=== PATIENT | male | born 1975 | race Caucasian/White ===

== ENCOUNTER 2018-01-04 16:12 | Emergency (ER) | payer MEDICAID ==
--- NOTE | 2018-01-04 16:51 | EDM.PDOC ---
ED HPI GENERAL MEDICAL PROBLEM - General Chief Complaint: General Stated Complaint: poor appetite, lethargy Time Seen by Provider: 01/04/18 16:31 Source of Information: Reports: Patient History Limitations: Reports: No Limitations - History of Present Illness INITIAL COMMENTS - FREE TEXT/NARRATIVE: States that he moved here about 2-3 weeks ago from [place] after breaking up with a girlfriend. Moved to as his Mom lives there. Hasn't been taking care of his diabetes for several months. Doesn't remember the last time he took his blood sugar and thinks his insulin has been "a while". Doesn't check his blood sugars at all. Did get a new glucose meter from [facility] several days ago but hasn't used it. Received his insulin supply from [facility] but hasn't taken any yet. DId have labs drawn when at [facility] but has no idea what it was or what the results are. Has been diabetic since 2007 and has never taken care of his diabetes. 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 He believes that he is type 2 but not sure. He states that he is very tired, no energy and has not been eating. Did drink some boost and that tends to give him diarrhea. States that he faints and falls and doesn't check his blood sugar so doesn't know if it is high or low. Did fall and hit the edge of the bath tub and has pain to the right lateral rib cage. Not sure when he fell. has multiple bruises and open sores on legs that he state don't heal because he picks on them. Onset: Gradual Location: Reports: Generalized Right Thoracic Pain Score (Numeric/FACES): 6 - Related Data Allergies Allergy/AdvReac Type Severity Reaction Status Date / Time No Known Allergies Allergy Verified 01/04/18 16:21 Home Meds: Home Meds Insulin Aspart [NovoLOG] 25 unit SUBCUT TIDAC 01/04/18 [History] Insulin Detemir [Levemir] 25 unit SUBCUT BID 01/04/18 [History] metFORMIN [Glucophage XR] 1,000 mg PO BID 01/04/18 [History] Past Medical History Endocrine/Metabolic History: Reports: Diabetes, Type II - Past Surgical History Musculoskeletal Surgical History: Reports: Other (See Below) 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 Social & Family History - Tobacco Use Smoking Status *Q: Never Smoker ED ROS GENERAL - Review of Systems Review Of Systems: See Below Constitutional: Reports: No Symptoms. Denies: Fever, Chills HEENT: Reports: No Symptoms Respiratory: Reports: No Symptoms Cardiovascular: Reports: No Symptoms GI/Abdominal: Reports: Diarrhea : Reports: No Symptoms Musculoskeletal: Reports: Other (right lateral chest wall pain) Skin: Reports: Wound (multiple areas on legs bilaterally, has sore on the base of the right thumb. has scratches on arms.) Neurological: Reports: Weakness ED EXAM, GENERAL - Physical Exam Exam: See Below Exam Limited By: No Limitations General Appearance: Alert, Mild Distress Ears: Normal External Exam, Normal Canal, Normal TMs Nose: Normal Inspection, No Blood Throat/Mouth: Other (teeth are broken off and in poor repair.). No: Normal Teeth Head: Atraumatic, Normocephalic Neck: Normal Inspection, Supple, Non-Tender, Full Range of Motion Respiratory/Chest: No Respiratory Distress, Lungs Clear, Normal Breath Sounds Cardiovascular: Regular Rate, Rhythm, No Edema GI/Abdominal: Normal Bowel Sounds, Soft, No Organomegaly Back Exam: Normal Inspection, Full Range of Motion Extremities: Other (has multiple scratches and open sores to his legs and arms, base of right thumb, upper back.) Neurological: Alert, Oriented, Other (states that it hard for him to remember.) Skin Exam: Warm, Dry, Wound/Incision (see HPI) Course - Vital Signs Last Recorded V/S: Last Vital Signs Temp 96.0 F 01/04/18 16:18 Pulse 101 H 01/04/18 16:18 Resp 20 01/04/18 16:18 BP 122/74 01/04/18 16:18 Pulse Ox 99 01/04/18 16:18 - Orders/Labs/Meds Orders: Active Orders 24 hr Category Date Time Status POC Glucose [Blood Glucose Check, Bedside] [RC] ONETIME Care 01/04/18 17:48 Active CXR [Chest 2V] [CR] Stat Exams 01/04/18 16:43 Taken DRUG SCREEN URINE BIORAD [URCHEM] Stat Lab 01/04/18 16:53 Ordered HIV 1,2 AB/AG COMBO SCREEN [REF] Stat Lab 01/04/18 17:00 Received UA W/MICROSCOPIC [URIN] Stat Lab 01/04/18 17:09 Ordered Insulin Regular, Human [NovoLIN R] 100 unit Med 01/04/18 18:00 Active Sodium Chloride 0.9% [Normal Saline] 99 ml IV TITRATE Sodium Chloride 0.9% [Normal Saline] 1,000 ml Med 01/04/18 18:00 Active IV ASDIRECTED Medication Orders Insulin Human Regular 100 unit (/ Sodium Chloride) 100 mls @ 5.89 mls/hr IV TITRATE ANTONIA; Protocol Last Admin: 01/04/18 17:57 Dose: 0.1 units/kg/hr, 5.89 mls/hr Sodium Chloride (Normal Saline) 1,000 mls @ 999 mls/hr IV ASDIRECTED ANTONIA Last Admin: 01/04/18 17:56 Dose: 999 mls/hr Labs: Laboratory Tests 01/04/18 01/04/18 01/04/18 Range/Units 16:48 16:48 16:48 WBC 21.0 H* (5.0-10.0) 10^3/uL RBC 4.47 L (4.50-6.00) 10^6/uL Hgb 11.9 L (14.0-18.0) g/dL Hct 35.5 L (40.0-54.0) % MCV 79.4 L (82.0-94.0) fL MCH 26.6 L (27.0-32.0) pg MCHC 33.5 (33.0-38.0) g/dL RDW Coeff of Jazzmine 13.8 (11.0-15.0) % Plt Count 359 (150-400) 10^3/uL Add Manual Diff Yes Neutrophils % (Manual) 79 (35-85) % Band Neutrophils % 14 H (0-5) % Lymphocytes % (Manual) 4 L (21-55) % Monocytes % (Manual) 2 (2-12) % Eosinophils % (Manual) 1 (0-5) % Sodium 113 L* (136-145) mEq/L Potassium 4.4 (3.5-5.0) mEq/L Chloride 81 L (98-106) mEq/L Carbon Dioxide 19 L (21-32) mmol/L BUN 80 H* (7-18) mg/dL Creatinine 2.4 H (0.7-1.3) mg/dL Est Cr Clr Drug Dosing 32.76 mL/min Estimated GFR (MDRD) 30 L (>=60) mL/min Glucose 875 H* (75-99) mg/dL Hemoglobin A1c 14.0 H (4.8-6.2) % Calcium 7.7 L (8.4-10.1) mg/dL Magnesium 2.5 H (1.8-2.4) mg/dL Total Bilirubin 0.5 (0.0-1.0) mg/dL AST 10 L (15-37) U/L ALT 18 (12-78) U/L Alkaline Phosphatase 291 H (46-116) U/L C-Reactive Protein 23.6 H (0.2-0.8) mg/dL Total Protein 7.5 (6.4-8.2) g/dL Albumin 1.8 L (3.4-5.0) g/dL Amylase 23 L (25-115) U/L Urine Color (YELLOW) Urine Appearance (CLEAR) Urine pH (4.5-8.0) Ur Specific [place] (1.003-1.020) Urine Protein (NEGATIVE) mg/dL Urine Glucose (UA) (NEGATIVE) mg/dL Urine Ketones (NEGATIVE) mg/dL Urine Occult Blood (NEGATIVE) Urine Nitrite (NEGATIVE) Urine Bilirubin (NEGATIVE) Urine Urobilinogen (0.2-1.0) EU/dL Ur Leukocyte Esterase (NEGATIVE) Urine RBC (0-5) /HPF Urine WBC (0-5) /HPF Urine WBC Clumps (NOT SEEN) /HPF Ur Epithelial Cells (NOT SEEN) /HPF Urine Bacteria (NOT SEEN) /HPF Urine Opiates Screen (NEGATIVE) Ur Oxycodone Screen (NEGATIVE) Urine Methadone Screen (NEGATIVE) Ur Barbiturates Screen (NEGATIVE) U Tricyclic Antidepress (NEGATIVE) Ur Phencyclidine Scrn (NEGATIVE) Ur Amphetamine Screen (NEGATIVE) U Methamphetamines Scrn (NEGATIVE) Urine MDMA Screen (NEGATIVE) U Benzodiazepines Scrn (NEGATIVE) Urine Cocaine Screen (NEGATIVE) U Marijuana (THC) Screen (NEGATIVE) 01/04/18 01/04/18 Range/Units 16:53 17:09 WBC (5.0-10.0) 10^3/uL RBC (4.50-6.00) 10^6/uL Hgb (14.0-18.0) g/dL Hct (40.0-54.0) % MCV (82.0-94.0) fL MCH (27.0-32.0) pg MCHC (33.0-38.0) g/dL RDW Coeff of Jazzmine (11.0-15.0) % Plt Count (150-400) 10^3/uL Add Manual Diff Neutrophils % (Manual) (35-85) % Band Neutrophils % (0-5) % Lymphocytes % (Manual) (21-55) % Monocytes % (Manual) (2-12) % Eosinophils % (Manual) (0-5) % Sodium (136-145) mEq/L Potassium (3.5-5.0) mEq/L Chloride (98-106) mEq/L Carbon Dioxide (21-32) mmol/L BUN (7-18) mg/dL Creatinine (0.7-1.3) mg/dL Est Cr Clr Drug Dosing mL/min Estimated GFR (MDRD) (>=60) mL/min Glucose (75-99) mg/dL Hemoglobin A1c (4.8-6.2) % Calcium (8.4-10.1) mg/dL Magnesium (1.8-2.4) mg/dL Total Bilirubin (0.0-1.0) mg/dL AST (15-37) U/L ALT (12-78) U/L Alkaline Phosphatase (46-116) U/L C-Reactive Protein (0.2-0.8) mg/dL Total Protein (6.4-8.2) g/dL Albumin (3.4-5.0) g/dL Amylase (25-115) U/L Urine Color Light yellow (YELLOW) Urine Appearance Cloudy (CLEAR) Urine pH 5.0 (4.5-8.0) Ur Specific [place] <= 1.005 (1.003-1.020) Urine Protein Trace H (NEGATIVE) mg/dL Urine Glucose (UA) >=1000 H (NEGATIVE) mg/dL Urine Ketones 15 H (NEGATIVE) mg/dL Urine Occult Blood Moderate H (NEGATIVE) Urine Nitrite Negative (NEGATIVE) Urine Bilirubin Negative (NEGATIVE) Urine Urobilinogen 0.2 (0.2-1.0) EU/dL Ur Leukocyte Esterase Moderate H (NEGATIVE) Urine RBC Not seen (0-5) /HPF Urine WBC >100 H (0-5) /HPF Urine WBC Clumps Moderate H (NOT SEEN) /HPF Ur Epithelial Cells Few H (NOT SEEN) /HPF Urine Bacteria Moderate H (NOT SEEN) /HPF Urine Opiates Screen Negative (NEGATIVE) Ur Oxycodone Screen Negative (NEGATIVE) Urine Methadone Screen Negative (NEGATIVE) Ur Barbiturates Screen Negative (NEGATIVE) U Tricyclic Antidepress Negative (NEGATIVE) Ur Phencyclidine Scrn Negative (NEGATIVE) Ur Amphetamine Screen Negative (NEGATIVE) U Methamphetamines Scrn Negative (NEGATIVE) Urine MDMA Screen Negative (NEGATIVE) U Benzodiazepines Scrn Negative (NEGATIVE) Urine Cocaine Screen Negative (NEGATIVE) U Marijuana (THC) Screen Negative (NEGATIVE) Meds: Medications Generic Name Dose Route Start Last Admin Trade Name Freq PRN Reason Stop Dose Admin Insulin Human Regular 100 unit 100 mls @ 5.89 mls/hr 01/04/18 18:00 01/04/18 17:57 / Sodium Chloride IV 0.1 units/kg/hr TITRATE ANTONIA 5.89 mls/hr Administration Protocol 0.1 UNITS/KG/HR Sodium Chloride 1,000 mls @ 999 mls/hr 01/04/18 18:00 01/04/18 17:56 Normal Saline IV 999 mls/hr ASDIRECTED ANTONIA Administration Discontinued Medications Generic Name Dose Route Start Last Admin Trade Name Freq PRN Reason Stop Dose Admin Insulin Detemir 30 unit 01/04/18 17:47 01/04/18 18:11 Levemir SUBCUT 01/04/18 17:48 30 unit ONETIME ONE Administration - Re-Assessments/Exams Free Text/Narrative Re-Assessment/Exam: 01/04/[id number] Vieira hospitalist at [facility] lab results and he agrees to take him in transfer. He advises to start insulin drip at 8 u, 30 units of Lantus, 1 liter NS bolus and then followed by 100 ml hour. Will be transferred to [facility], Risks of staying with the pt were reviewed including chance of , worsening or conditioning, inablility to care for pt adequately at this facility. Benefits of transfer include that he would have specialized care and treatment by specialists. Pt voices understanding and does wish to be transferred to [facility]. Departure - Departure Time of Disposition: 18:19 Disposition: DC/Tfer to Acute Hospital 02 Condition: Serious Clinical Impression: Hyperglycemia, Hyponatremia - Discharge Information *PRESCRIPTION DRUG MONITORING PROGRAM REVIEWED*: Not Applicable *COPY OF PRESCRIPTION DRUG MONITORING REPORT IN PATIENT ELVIA: Not Applicable Forms: ED Department Discharge Additional Instructions: Transfer to [facility] 2E per ambulance with Insulin drip at 8 units per hour, IV normal saline at 100 ml hour after the bolus is in. - Problem List & Annotations (1) Hyperglycemia SNOMED Code(s): 34813412 Code(s): R73.9 - HYPERGLYCEMIA, UNSPECIFIED Status: Acute Priority: High Current Visit: Yes (2) Hyponatremia SNOMED Code(s): 35368968 Code(s): E87.1 - HYPO-OSMOLALITY AND HYPONATREMIA Status: Acute Priority : High Current Visit: Yes - Problem List Review Problem List Initiated/Reviewed/Updated: Yes - My Orders Last 24 Hours: My Active Orders 01/04/18 16:43 CXR [Chest 2V] [CR] Stat 01/04/18 16:53 DRUG SCREEN URINE BIORAD [URCHEM] Stat 01/04/18 17:00 HIV 1,2 AB/AG COMBO SCREEN [REF] Stat 01/04/18 17:09 UA W/MICROSCOPIC [URIN] Stat 01/04/18 17:48 POC Glucose [Blood Glucose Check, Bedside] [RC] ONETIME 01/04/18 18:00 Insulin Regular, Human [NovoLIN R] 100 unit Sodium Chloride 0.9% [Normal Saline] 99 ml IV TITRATE Sodium Chloride 0.9% [Normal Saline] 1,000 ml IV ASDIRECTED - Assessment/Plan Last 24 Hours: My Active Orders 01/04/18 16:43 CXR [Chest 2V] [CR] Stat 01/04/18 16:53 DRUG SCREEN URINE BIORAD [URCHEM] Stat 01/04/18 17:00 HIV 1,2 AB/AG COMBO SCREEN [REF] Stat 01/04/18 17:09 UA W/MICROSCOPIC [URIN] Stat 01/04/18 17:48 POC Glucose [Blood Glucose Check, Bedside] [RC] ONETIME 01/04/18 18:00 Insulin Regular, Human [NovoLIN R] 100 unit Sodium Chloride 0.9% [Normal Saline] 99 ml IV TITRATE Sodium Chloride 0.9% [Normal Saline] 1,000 ml IV ASDIRECTED
[2018-01-04] MEDS ORDERED: Insulin Detemir 100 Units/ML 3 ML Pen SUBCUT ONE (17:47)
[2018-01-04] MEDS ORDERED: Sodium Chloride 0.9% 1,000 ML IV SCH (18:00)
== END 2018-01-04 19:27 ==
LOC: CC.ED 16:12
DX: E11.65 Type 2 diabetes mellitus with hyperglycemia (principal); Z79.4 Long term (current) use of insulin
CPT/HCPCS: 36415; 71046; 80053; 80305-QW; 81001; 82150; 82947; 82962; 83036; 83735; 85025; 86140; 86703; 96365; 99285; J1815-GY; J7030; J7050

== ENCOUNTER 2018-02-18 17:59 | Emergency (ER) | payer SELFPAY ==
[2018-02-18] MEDS ORDERED: cefTRIAXone 1 GM Vial IM ONE (18:42)
[2018-02-18] MEDS ORDERED: Lidocaine 1% 20 ML MDV INJECT ONE (18:42)
--- NOTE | 2018-02-18 18:46 | EDM.PDOC ---
ED HPI GENERAL MEDICAL PROBLEM - General Chief Complaint: Flank Pain Stated Complaint: kidney stone Time Seen by Provider: 02/18/18 18:15 Source of Information: Reports: Patient History Limitations: Reports: No Limitations - History of Present Illness INITIAL COMMENTS - FREE TEXT/NARRATIVE: Patient presents with complaints of left flank pain, questions a kidney stone. States started having discomfort yesterday and has not improved. He denies fever. No nausea. States has mostly laid in bed today due to the discomfort. Has taken ibuprofen and tylenol without much relief. He has not eaten much today but did take his insulin. Has had a kidney stone in the past and feels somewhat like that. He rates his pain at an 8/10. Relates his blood sugars have been running high as of late but abdominal pain, dysuria, or hematuria noted. Does have frequency with urination chronically. Onset: Gradual Duration: Day(s): Location: Reports: Back Quality: Reports: Throbbing Severity: Moderate Associated Symptoms: Reports: Loss of Appetite, Weakness. Denies: Cough, Fever/ Chills, Nausea/Vomiting, Shortness of Breath Left Flank Pain Score (Numeric/FACES): 8 - Related Data Allergies Allergy/AdvReac Type Severity Reaction Status Date / Time No Known Allergies Allergy Verified 02/18/18 18:11 Home Meds: Home Meds Insulin Aspart [NovoLOG] 18 unit SUBCUT TIDAC 01/04/18 [History] Insulin Detemir [Levemir] 40 unit SUBCUT BID 01/04/18 [History] metFORMIN [Glucophage XR] 1,000 mg PO BID 01/04/18 [History] Ferrous Sulfate 324 mg PO BIDMEALS #60 tab.ec 01/22/18 [Rx] Aspirin 81 mg PO DAILY 02/18/18 [History] Past Medical History HEENT History: Reports: Glaucoma Endocrine/Metabolic History: Reports: Diabetes, Type II - Past Surgical History Musculoskeletal Surgical History: Reports: Other (See Below) 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 Social & Family History - Family History Family Medical History: Noncontributory - Tobacco Use Smoking Status *Q: Never Smoker Second Hand Smoke Exposure: Yes - Caffeine Use Caffeine Use: Reports: Coffee ED ROS GENERAL - Review of Systems Review Of Systems: ROS reveals no pertinent complaints other than HPI. Constitutional: Reports: Malaise, Weakness, Decreased Appetite. Denies: Fever, Chills HEENT: Reports: No Symptoms Respiratory: Denies: Shortness of Breath, Cough Cardiovascular: Denies: Chest Pain, Edema, Lightheadedness GI/Abdominal: Denies: Abdominal Pain, Nausea, Vomiting : Reports: Frequency. Denies: Dysuria, Hematuria Musculoskeletal: Reports: No Symptoms Skin: Reports: No Symptoms Neurological: Reports: No Symptoms Psychiatric: Reports: No Symptoms ED EXAM, RENAL/ - Physical Exam Exam: See Below Exam Limited By: No Limitations General Appearance: Alert, WD/WN, No Apparent Distress Ears: Normal External Exam, Normal TMs Throat/Mouth: Normal Inspection, Normal Oropharynx Head: Normocephalic Neck: Normal Inspection, Supple Respiratory/Chest: No Respiratory Distress, Lungs Clear, Normal Breath Sounds Cardiovascular: Regular Rate, Rhythm GI/Abdominal: Normal Bowel Sounds, Soft, Non-Tender Back Exam: CVA Tenderness (L) Extremities: Normal Inspection, Normal Capillary Refill Neurological: Alert, Oriented Skin Exam: Warm, Dry Course - Vital Signs Last Recorded V/S: Last Vital Signs Temp 98.2 F 02/18/18 18:09 Pulse 90 02/18/18 18:09 Resp 20 02/18/18 18:09 BP 150/103 H 02/18/18 18:09 Pulse Ox 98 02/18/18 18:09 - Orders/Labs/Meds Orders: Active Orders 24 hr Category Date Time Status CULTURE URINE [RM] Stat Lab 02/18/18 18:04 Received UA W/MICROSCOPIC [URIN] Stat Lab 02/18/18 18:04 Ordered Labs: Laboratory Tests 02/18/18 Range/Units 18:04 Urine Color Yellow (YELLOW) Urine Appearance Clear (CLEAR) Urine pH 6.0 (4.5-8.0) Ur Specific [place] 1.015 (1.003-1.020) Urine Protein Negative (NEGATIVE) mg/dL Urine Glucose (UA) Negative (NEGATIVE) mg/dL Urine Ketones Negative (NEGATIVE) mg/dL Urine Occult Blood Negative (NEGATIVE) Urine Nitrite Negative (NEGATIVE) Urine Bilirubin Negative (NEGATIVE) Urine Urobilinogen 0.2 (0.2-1.0) EU/dL Ur Leukocyte Esterase Small H (NEGATIVE) Urine RBC 0-5 (0-5) /HPF Urine WBC 50-75 H (0-5) /HPF Meds: Medications Discontinued Medications Generic Name Dose Route Start Last Admin Trade Name Napoleon PRN Reason Stop Dose Admin Ceftriaxone Sodium 1 gm 02/18/18 18:42 02/18/18 19:05 Rocephin IM 02/18/18 18:43 1 gm ONETIME ONE Administration Ketorolac Tromethamine 60 mg 02/18/18 18:51 02/18/18 19:05 Toradol IM 02/18/18 18:52 60 mg ONETIME ONE Administration Lidocaine HCl 20 ml 02/18/18 18:42 02/18/18 19:05 Xylocaine 1% INJECT 02/18/18 18:43 20 ml ONETIME ONE Administration - Re-Assessments/Exams Free Text/Narrative Re-Assessment/Exam: 02/18/18 Patient's urine positive for infection, no blood. Informed patient and family. Departure - Departure Time of Disposition: 18:43 Disposition: Home, Self-Care 01 Condition: Fair Clinical Impression: UTI, Urinary tract infectious disease - Discharge Information *PRESCRIPTION DRUG MONITORING PROGRAM REVIEWED*: No *COPY OF PRESCRIPTION DRUG MONITORING REPORT IN PATIENT ELVIA: No Referrals: Sidney Crespo MD [Primary Care Provider] - Forms: ED Department Discharge Additional Instructions: 1. Push fluids 2. Tylenol or ibuprofen as directed 3. Bactrim DS one tab twice a day for 10 days 4. Follow up with Dr. Crespo for concerns. - My Orders Last 24 Hours: My Active Orders 02/18/18 18:04 CULTURE URINE [RM] Stat UA W/MICROSCOPIC [URIN] Stat - Assessment/Plan Last 24 Hours: My Active Orders 02/18/18 18:04 CULTURE URINE [RM] Stat UA W/MICROSCOPIC [URIN] Stat
[2018-02-18] MEDS ORDERED: Ketorolac 60 MG/2 ML SDV IM ONE (18:51)
== END 2018-02-18 19:12 | disposition home or self-care (01) ==
LOC: CC.ED 17:59
DX: N39.0 Urinary tract infection, site not specified (principal); E11.9 Type 2 diabetes mellitus without complications; Z79.4 Long term (current) use of insulin; Z77.22 Contact with and (suspected) exposure to environmental tobacco smoke (acute) (chronic)
CPT/HCPCS: 81001; 87086; 96372; 99284; J0696; J1885

== ENCOUNTER 2018-10-20 15:06 | Inpatient (IN) | payer MEDICAID, OTHER ==
[2018-10-20 15:29] LABS: HEMOGLOBIN A1C 13.2 % (4.8-6.2)
[2018-10-20 15:45] LABS: CHLORIDE,CL 109 mEq/L (98-106); SODIUM,NA 138 mEq/L (136-145)
[2018-10-20] MEDS ORDERED: Ondansetron 4 MG Tab.DIS PO PRN (17:34)
[2018-10-20] MEDS ORDERED: Sodium Chloride 0.9% 10 ML Syringe FLUSH PRN (17:34)
[2018-10-20] MEDS ORDERED: Pantoprazole 40 MG Vial IVPUSH SCH (17:45)
[2018-10-20] MEDS ORDERED: cefTRIAXone 1 GM Vial IM ONE (17:50)
[2018-10-20] MEDS ORDERED: cefTRIAXone 1 GM Vial IV SCH (18:00)
[2018-10-20] MEDS ORDERED: cefTRIAXone 1 GM Vial IM SCH (18:00)
[2018-10-20] MEDS: Pantoprazole 40 MG Tab.CR PO SCH (18:16)
[2018-10-20] MEDS: Sodium Chloride 0.9% 1,000 ML IV SCH (18:17)
[2018-10-20] MEDS: cefTRIAXone 1 GM Vial IV SCH (20:58)
[2018-10-20] MEDS: Insulin Glargine,Human Rec. Analog 100 Units/ML 3 ML Pen SUBCUT SCH (21:00)
[2018-10-20] MEDS: Insulin Regular, Human 100 Units/ML 10 ML Vial SUBCUT SCH (21:28)
[2018-10-21] MEDS: Pantoprazole 40 MG Tab.CR PO SCH (07:27)
[2018-10-21] MEDS: Ferrous Sulfate 324 MG Tab.EC PO SCH ×3 (07:27→18:01)
[2018-10-21] MEDS: Sodium Chloride 0.9% 1,000 ML IV SCH (07:27)
[2018-10-21] MEDS ORDERED: Iopamidol 755 Mg/ML 100 ML Bottle IVPUSH ONE (08:17)
[2018-10-21] MEDS: Insulin Regular, Human 100 Units/ML 10 ML Vial SUBCUT SCH ×5 (08:26→20:55)
--- NOTE | 2018-10-21 08:39 | PCM.PN ---
- General Info Date of Service: 10/21/18 Admission Dx/Problem (Free Text): Hematochezia Anemia Shortness of breath Uncontrolled DM Functional Status: Reports: Pain Controlled, Ambulating, Urinating. Denies: Tolerating Diet - Review of Systems General: Reports: Fatigue, Malaise. Denies: Weakness HEENT: Reports: No Symptoms Pulmonary: Reports: Shortness of Breath. Denies: Cough Cardiovascular: Reports: Lightheadedness. Denies: Chest Pain, Edema Gastrointestinal: Reports: Abdominal Pain, Hematochezia. Denies: Nausea, Vomiting Genitourinary: Reports: No Symptoms Musculoskeletal: Reports: No Symptoms Skin: Reports: No Symptoms Neurological: Reports: No Symptoms - Patient Data Vitals - Most Recent: Last Vital Signs Temp 98.1 F 10/21/18 07:41 Pulse 94 10/21/18 07:41 Resp 18 10/21/18 07:41 BP 109/76 10/21/18 07:41 Pulse Ox 100 10/21/18 07:41 Weight - Most Recent: 178 lb I&O - Last 24 Hours: Intake & Output 10/20/18 10/21/18 10/21/18 22:59 06:59 14:59 Intake Total 988 Balance 988 Lab Results Last 24 Hours: Laboratory Results - last 24 hr 10/20/18 10/20/18 10/20/18 Range/Units 15:15 15:15 15:15 WBC 9.0 (5.0-10.0) 10^3/uL RBC 3.31 L (4.50-6.00) 10^6/uL Hgb 8.2 L (14.0-18.0) g/dL Hct 27.0 L (40.0-54.0) % MCV 81.6 L (82.0-94.0) fL MCH 24.8 L (27.0-32.0) pg MCHC 30.4 L (33.0-38.0) g/dL RDW Coeff of Jazzmine 14.8 (11.0-15.0) % Plt Count 427 H (150-400) 10^3/uL Neut % (Auto) 64.6 (35-85) % Lymph % (Auto) 21.8 (10-55) % [place] % (Auto) 9.1 (0-16) % Eos % (Auto) 2.9 (0-5) % Baso % (Auto) 1.6 (0-3) % Neut # (Auto) 5.79 (1.80-7.00) 10^3/uL Lymph # (Auto) 1.95 (1.00-4.80) 10^3/uL [place] # (Auto) 0.81 H (0.00-0.80) 10^3/uL Eos # (Auto) 0.26 (0.00-0.45) 10^3/uL Baso # (Auto) 0.14 10^3/uL ESR (0-15) mm/hr D-Dimer, Quantitative (0.00-0.50) Sodium 138 (136-145) mEq/L Potassium 4.6 (3.5-5.0) mEq/L Chloride 109 H (98-106) mEq/L Carbon Dioxide 19 L (21-32) mmol/L BUN 32 H (7-18) mg/dL Creatinine 1.3 (0.7-1.3) mg/dL Est Cr Clr Drug Dosing TNP Estimated GFR (MDRD) 60 (>=60) mL/min Glucose 77 (75-99) mg/dL POC Glucose (75-105) mg/dl Hemoglobin A1c 13.2 H (4.8-6.2) % Calcium 7.8 L (8.4-10.1) mg/dL Total Bilirubin 0.1 (0.0-1.0) mg/dL AST 20 (15-37) U/L ALT 31 (12-78) U/L Alkaline Phosphatase 193 H (46-116) U/L NT-Pro-B Natriuret Pep 555 (0-1000) pg/mL Total Protein 6.7 (6.4-8.2) g/dL Albumin 2.7 L (3.4-5.0) g/dL TSH, Ultra Sensitive 3.52 (0.36-5.60) uIU/mL Urine Color (YELLOW) Urine Appearance (CLEAR) Urine pH (4.5-8.0) Ur Specific [place] (1.003-1.020) Urine Protein (NEGATIVE) mg/dL Urine Glucose (UA) (NEGATIVE) mg/dL Urine Ketones (NEGATIVE) mg/dL Urine Occult Blood (NEGATIVE) Urine Nitrite (NEGATIVE) Urine Bilirubin (NEGATIVE) Urine Urobilinogen (0.2-1.0) EU/dL Ur Leukocyte Esterase (NEGATIVE) Urine RBC (0-5) /HPF Urine WBC (0-5) /HPF Urine WBC Clumps (NOT SEEN) /HPF Ur Squamous Epith Cells (NOT SEEN) /HPF Urine Bacteria (NOT SEEN) /HPF Urinalysis Comment 10/20/18 10/20/18 10/20/18 Range/Units 15:15 15:15 21:00 WBC (5.0-10.0) 10^3/uL RBC (4.50-6.00) 10^6/uL Hgb (14.0-18.0) g/dL Hct (40.0-54.0) % MCV (82.0-94.0) fL MCH (27.0-32.0) pg MCHC (33.0-38.0) g/dL RDW Coeff of Jazzmine (11.0-15.0) % Plt Count (150-400) 10^3/uL Neut % (Auto) (35-85) % Lymph % (Auto) (10-55) % [place] % (Auto) (0-16) % Eos % (Auto) (0-5) % Baso % (Auto) (0-3) % Neut # (Auto) (1.80-7.00) 10^3/uL Lymph # (Auto) (1.00-4.80) 10^3/uL [place] # (Auto) (0.00-0.80) 10^3/uL Eos # (Auto) (0.00-0.45) 10^3/uL Baso # (Auto) 10^3/uL ESR (0-15) mm/hr D-Dimer, Quantitative 0.60 H (0.00-0.50) Sodium (136-145) mEq/L Potassium (3.5-5.0) mEq/L Chloride (98-106) mEq/L Carbon Dioxide (21-32) mmol/L BUN (7-18) mg/dL Creatinine (0.7-1.3) mg/dL Est Cr Clr Drug Dosing Estimated GFR (MDRD) (>=60) mL/min Glucose (75-99) mg/dL POC Glucose 404 H* (75-105) mg/dl Hemoglobin A1c (4.8-6.2) % Calcium (8.4-10.1) mg/dL Total Bilirubin (0.0-1.0) mg/dL AST (15-37) U/L ALT (12-78) U/L Alkaline Phosphatase (46-116) U/L NT-Pro-B Natriuret Pep (0-1000) pg/mL Total Protein (6.4-8.2) g/dL Albumin (3.4-5.0) g/dL TSH, Ultra Sensitive (0.36-5.60) uIU/mL Urine Color Yellow (YELLOW) Urine Appearance Slightly cloudy (CLEAR) Urine pH 5.5 (4.5-8.0) Ur Specific [place] 1.015 (1.003-1.020) Urine Protein 30 H (NEGATIVE) mg/dL Urine Glucose (UA) 500 H (NEGATIVE) mg/dL Urine Ketones Negative (NEGATIVE) mg/dL Urine Occult Blood Trace-intact H (NEGATIVE) Urine Nitrite Negative (NEGATIVE) Urine Bilirubin Negative (NEGATIVE) Urine Urobilinogen 0.2 (0.2-1.0) EU/dL Ur Leukocyte Esterase Small H (NEGATIVE) Urine RBC 0-5 (0-5) /HPF Urine WBC >100 H (0-5) /HPF Urine WBC Clumps Few H (NOT SEEN) /HPF Ur Squamous Epith Cells Occasional H (NOT SEEN) /HPF Urine Bacteria Moderate H (NOT SEEN) /HPF Urinalysis Comment 10/21/18 10/21/18 10/21/18 Range/Units 06:50 06:50 07:26 WBC (5.0-10.0) 10^3/uL RBC (4.50-6.00) 10^6/uL Hgb 7.7 L* (14.0-18.0) g/dL Hct (40.0-54.0) % MCV (82.0-94.0) fL MCH (27.0-32.0) pg MCHC (33.0-38.0) g/dL RDW Coeff of Jazzmine (11.0-15.0) % Plt Count (150-400) 10^3/uL Neut % (Auto) (35-85) % Lymph % (Auto) (10-55) % [place] % (Auto) (0-16) % Eos % (Auto) (0-5) % Baso % (Auto) (0-3) % Neut # (Auto) (1.80-7.00) 10^3/uL Lymph # (Auto) (1.00-4.80) 10^3/uL [place] # (Auto) (0.00-0.80) 10^3/uL Eos # (Auto) (0.00-0.45) 10^3/uL Baso # (Auto) 10^3/uL ESR 33 H (0-15) mm/hr D-Dimer, Quantitative (0.00-0.50) Sodium (136-145) mEq/L Potassium (3.5-5.0) mEq/L Chloride (98-106) mEq/L Carbon Dioxide (21-32) mmol/L BUN (7-18) mg/dL Creatinine (0.7-1.3) mg/dL Est Cr Clr Drug Dosing Estimated GFR (MDRD) (>=60) mL/min Glucose (75-99) mg/dL POC Glucose 138 H (75-105) mg/dl Hemoglobin A1c (4.8-6.2) % Calcium (8.4-10.1) mg/dL Total Bilirubin (0.0-1.0) mg/dL AST (15-37) U/L ALT (12-78) U/L Alkaline Phosphatase (46-116) U/L NT-Pro-B Natriuret Pep (0-1000) pg/mL Total Protein (6.4-8.2) g/dL Albumin (3.4-5.0) g/dL TSH, Ultra Sensitive (0.36-5.60) uIU/mL Urine Color (YELLOW) Urine Appearance (CLEAR) Urine pH (4.5-8.0) Ur Specific [place] (1.003-1.020) Urine Protein (NEGATIVE) mg/dL Urine Glucose (UA) (NEGATIVE) mg/dL Urine Ketones (NEGATIVE) mg/dL Urine Occult Blood (NEGATIVE) Urine Nitrite (NEGATIVE) Urine Bilirubin (NEGATIVE) Urine Urobilinogen (0.2-1.0) EU/dL Ur Leukocyte Esterase (NEGATIVE) Urine RBC (0-5) /HPF Urine WBC (0-5) /HPF Urine WBC Clumps (NOT SEEN) /HPF Ur Squamous Epith Cells (NOT SEEN) /HPF Urine Bacteria (NOT SEEN) /HPF Urinalysis Comment Gerald Results Last 24 Hours: Microbiology 10/20/18 15:59 Urine Culture - Preliminary Urine, Voided Gram Negative Rods Med Orders - Current: Current Medications Ceftriaxone Sodium (Rocephin) 1 gm IV Q24H [facility] Last Admin: 10/20/18 20:58 Dose: 1 gm Ferrous Sulfate (Ferrous Sulfate) 324 mg PO BIDMEALS [facility] Last Admin: 10/21/18 07:27 Dose: 324 mg Insulin Glargine (Lantus Solostar) 20 units SUBCUT BEDTIME [facility] Last Admin: 10/20/18 21:00 Dose: 20 units Insulin Human Regular (Novolin R) 0 unit SUBCUT QIDACANDBED [facility]; Protocol Last Admin: 10/21/18 08:26 Dose: Not Given Ondansetron HCl (Zofran Odt) 4 mg PO Q6H PRN PRN Reason: nausea, able to take PO Pantoprazole Sodium (Protonix) 40 mg PO DAILY [facility] Last Admin: 10/21/18 07:27 Dose: 40 mg Sodium Chloride (Saline Flush) 10 ml FLUSH ASDIRECTED PRN PRN Reason: Keep Vein Open Discontinued Medications Ceftriaxone Sodium (Rocephin) 1 gm IM ONETIME ONE Stop: 10/20/18 17:51 Last Admin: 10/20/18 17:57 Dose: Not Given Ceftriaxone Sodium (Rocephin) 1 gm IM Q24H [facility] Ceftriaxone Sodium (Rocephin) 1 gm IV Q24H [facility] Ceftriaxone Sodium (Rocephin) 1 gm IV Q24H [facility] Sodium Chloride (Normal Saline) 1,000 mls @ 75 mls/hr IV ASDIRECTED [facility] Last Infusion: 10/21/18 07:27 Dose: Infused Iopamidol (Isovue-370 (76%)) 100 ml IVPUSH ONETIME ONE Stop: 10/21/18 08:18 Pantoprazole Sodium (Protonix Iv) 40 mg IVPUSH Q24H [facility] Last Admin: 10/20/18 18:09 Dose: Not Given - Exam General: Alert, Oriented HEENT: Mucous Membr. Moist/[place] Neck: Supple Lungs: Clear to Auscultation, Normal Respiratory Effort Cardiovascular: Regular Rate, Regular Rhythm GI/Abdominal Exam: Normal Bowel Sounds, Soft, Tender (RLQ) Extremities: Normal Inspection, No Pedal Edema Skin: Warm, Dry Neurological: No New Focal Deficit - Problem List & Annotations (1) Anemia SNOMED Code(s): 056299183 Code(s): D64.9 - ANEMIA, UNSPECIFIED Status: Acute Priority: High Current Visit: Yes Qualifiers: Anemia type: unspecified type Qualified Code(s): D64.9 - Anemia, unspecified (2) Shortness of breath SNOMED Code(s): 000090610 Code(s): R06.02 - SHORTNESS OF BREATH Status: Acute Priority: High Current Visit: Yes (3) Type II diabetes mellitus, uncontrolled SNOMED Code(s): 954836852, 545490070 Code(s): E11.65 - TYPE 2 DIABETES MELLITUS WITH HYPERGLYCEMIA Status: Acute Priority: High Current Visit: Yes Qualifiers: Glycemic state: with hyperglycemia Qualified Code(s): E11.65 - Type 2 diabetes mellitus with hyperglycemia (4) Hematochezia SNOMED Code(s): 383086094 Code(s): K92.1 - MELENA Status: Acute Priority: High Current Visit: Yes - Problem List Review Problem List Initiated/Reviewed/Updated: Yes - Assessment Assessment:: 1. Hematochezia 2. Anemia 3. Shortness of breath 4. Uncontrolled DM - Plan Plan:: Patient stable this am. Continues to feel "tired". Gets lightheaded at times when up. Does believe the blood in his rectum is related to his lactose intolerance as is worse when consuming that. Has mild abdominal discomfort, especially in RLQ. Afebrile. WBC normal, hemoglobin down to 7.7 this am. Urine culture is positive for gram negative rods. Proceed with CT of abdomen and pelvis this am. Continue Rocephin. Plan for colonoscopy on am. Obtain stool cultures. Recheck labs in am.
[2018-10-21] MEDS: Bisacodyl 5 MG Tab PO SCH (18:01)
[2018-10-21] MEDS ORDERED: cefTRIAXone 1 GM Vial IV SCH (20:00)
[2018-10-21] MEDS: cefTRIAXone 1 GM Vial IV SCH (20:54)
[2018-10-21] MEDS: Insulin Glargine,Human Rec. Analog 100 Units/ML 3 ML Pen SUBCUT SCH (20:54)
[2018-10-22 07:23] LABS: CHLORIDE,CL 108 mEq/L (98-106); SODIUM,NA 139 mEq/L (136-145)
[2018-10-22] MEDS: Pantoprazole 40 MG Tab.CR PO SCH (08:15)
[2018-10-22] MEDS: Ferrous Sulfate 324 MG Tab.EC PO SCH ×2 (08:15→17:19)
[2018-10-22] MEDS: Insulin Regular, Human 100 Units/ML 10 ML Vial SUBCUT SCH ×4 (08:20→20:51)
--- NOTE | 2018-10-22 17:26 | PCM.PN ---
- General Info Date of Service: 10/22/18 Admission Dx/Problem (Free Text): Hematochezia Anemia Shortness of breath Uncontrolled DM Functional Status: Reports: Pain Controlled, Tolerating Diet, Ambulating, Urinating - Review of Systems General: Reports: Fatigue, Malaise. Denies: Fever, Weakness HEENT: Reports: No Symptoms Pulmonary: Denies: Shortness of Breath, Cough Cardiovascular: Denies: Chest Pain, Edema, Lightheadedness Gastrointestinal: Denies: Abdominal Pain, Nausea, Vomiting Genitourinary: Reports: Frequency Musculoskeletal: Reports: No Symptoms Skin: Reports: No Symptoms Neurological: Reports: No Symptoms - Patient Data Vitals - Most Recent: Last Vital Signs Temp 97.2 F 10/22/18 15:59 Pulse 88 10/22/18 15:59 Resp 20 10/22/18 15:59 BP 117/87 10/22/18 15:59 Pulse Ox 100 10/22/18 15:59 Weight - Most Recent: 178 lb Lab Results Last 24 Hours: Laboratory Results - last 24 hr 10/21/18 10/21/18 10/21/18 Range/Units 06:50 17:20 20:52 WBC (5.0-10.0) 10^3/uL RBC (4.50-6.00) 10^6/uL Hgb (14.0-18.0) g/dL Hct (40.0-54.0) % MCV (82.0-94.0) fL MCH (27.0-32.0) pg MCHC (33.0-38.0) g/dL RDW Coeff of Jazzmine (11.0-15.0) % Plt Count (150-400) 10^3/uL Neut % (Auto) (35-85) % Lymph % (Auto) (10-55) % [place] % (Auto) (0-16) % Eos % (Auto) (0-5) % Baso % (Auto) (0-3) % Neut # (Auto) (1.80-7.00) 10^3/uL Lymph # (Auto) (1.00-4.80) 10^3/uL [place] # (Auto) (0.00-0.80) 10^3/uL Eos # (Auto) (0.00-0.45) 10^3/uL Baso # (Auto) 10^3/uL Sodium (136-145) mEq/L Potassium (3.5-5.0) mEq/L Chloride (98-106) mEq/L Carbon Dioxide (21-32) mmol/L BUN (7-18) mg/dL Creatinine (0.7-1.3) mg/dL Est Cr Clr Drug Dosing mL/min Estimated GFR (MDRD) (>=60) mL/min Glucose (75-99) mg/dL POC Glucose 257 H 192 H (75-105) mg/dl Calcium (8.4-10.1) mg/dL Iron 18 L (50-150) ug/dL TIBC 394 (261-478) ug/dL Unsaturated IBC 376 H (155-355) ug/dL Transferrin % Sat 4.6 L (20.0-50.0) % Ferritin 7 L (24-336) ng/mL C-Reactive Protein (0.2-0.8) mg/dL 10/22/18 10/22/18 10/22/18 Range/Units 05:11 07:00 08:18 WBC 9.0 (5.0-10.0) 10^3/uL RBC 3.36 L (4.50-6.00) 10^6/uL Hgb 8.4 L (14.0-18.0) g/dL Hct 27.0 L (40.0-54.0) % MCV 80.4 L (82.0-94.0) fL MCH 25.0 L (27.0-32.0) pg MCHC 31.1 L (33.0-38.0) g/dL RDW Coeff of Jazzmine 14.9 (11.0-15.0) % Plt Count 407 H (150-400) 10^3/uL Neut % (Auto) 63.5 (35-85) % Lymph % (Auto) 22.6 (10-55) % [place] % (Auto) 8.7 (0-16) % Eos % (Auto) 3.9 (0-5) % Baso % (Auto) 1.3 (0-3) % Neut # (Auto) 5.73 (1.80-7.00) 10^3/uL Lymph # (Auto) 2.04 (1.00-4.80) 10^3/uL [place] # (Auto) 0.79 (0.00-0.80) 10^3/uL Eos # (Auto) 0.35 (0.00-0.45) 10^3/uL Baso # (Auto) 0.12 10^3/uL Sodium 139 (136-145) mEq/L Potassium 5.4 H (3.5-5.0) mEq/L Chloride 108 H (98-106) mEq/L Carbon Dioxide 21 (21-32) mmol/L BUN 25 H (7-18) mg/dL Creatinine 1.6 H (0.7-1.3) mg/dL Est Cr Clr Drug Dosing 60.20 mL/min Estimated GFR (MDRD) 47 L (>=60) mL/min Glucose 232 H D (75-99) mg/dL POC Glucose 193 H (75-105) mg/dl Calcium 8.0 L (8.4-10.1) mg/dL Iron (50-150) ug/dL TIBC (261-478) ug/dL Unsaturated IBC (155-355) ug/dL Transferrin % Sat (20.0-50.0) % Ferritin (24-336) ng/mL C-Reactive Protein < 0.2 L (0.2-0.8) mg/dL Gerald Results Last 24 Hours: Microbiology 10/22/18 10:17 C. difficile DNA Amplification - Final Stool / Feces - Stool, Formed NEGATIVE CDIFF BY DNA REFERENCE RANGE: NEGATIVE 10/22/18 10:19 Stool for WBCs - Final Stool / Feces - Stool, Formed NO WBC SEEN REFERENCE RANGE: NO WBC SEEN 10/20/18 17:38 Occult Blood - Final Stool / Feces 10/20/18 15:59 Urine Culture - Final Urine, Voided Serratia Plymuthica Med Orders - Current: Current Medications Bisacodyl (Dulcolax) 10 mg PO DAILY@1800 [facility] Stop: 10/23/18 18:01 Last Admin: 10/21/18 18:01 Dose: 10 mg Ceftriaxone Sodium (Rocephin) 1 gm IV Q24H [facility] Last Admin: 10/21/18 20:54 Dose: 1 gm Ferrous Sulfate (Ferrous Sulfate) 324 mg PO BIDMEALS [facility] Last Admin: 10/22/18 08:15 Dose: 324 mg Insulin Glargine (Lantus Solostar) 20 units SUBCUT BEDTIME [facility] Last Admin: 10/21/18 20:54 Dose: 20 units Insulin Human Regular (Novolin R) 0 unit SUBCUT 0800,1200,1730,2100 [facility]; Protocol Last Admin: 10/22/18 12:00 Dose: Not Given Ondansetron HCl (Zofran Odt) 4 mg PO Q6H PRN PRN Reason: nausea, able to take PO Pantoprazole Sodium (Protonix) 40 mg PO DAILY [facility] Last Admin: 10/22/18 08:15 Dose: 40 mg Polyethylene Glycol (Miralax) 238 gm PO ONETIME ONE Stop: 10/22/18 18:01 Sodium Chloride (Saline Flush) 10 ml FLUSH ASDIRECTED PRN PRN Reason: Keep Vein Open Discontinued Medications Ceftriaxone Sodium (Rocephin) 1 gm IM ONETIME ONE Stop: 10/20/18 17:51 Last Admin: 10/20/18 17:57 Dose: Not Given Ceftriaxone Sodium (Rocephin) 1 gm IM Q24H [facility] Ceftriaxone Sodium (Rocephin) 1 gm IV Q24H [place] Ceftriaxone Sodium (Rocephin) 1 gm IV Q24H [facility] Sodium Chloride (Normal Saline) 1,000 mls @ 75 mls/hr IV ASDIRECTED [facility] Last Infusion: 10/21/18 07:27 Dose: Infused Insulin Human Regular (Novolin R) 0 unit SUBCUT QIDACANDBED [facility]; Protocol Last Admin: 10/21/18 12:06 Dose: Not Given Iopamidol (Isovue-370 (76%)) 100 ml IVPUSH ONETIME ONE Stop: 10/21/18 08:18 Last Admin: 10/21/18 09:53 Dose: 100 ml Pantoprazole Sodium (Protonix Iv) 40 mg IVPUSH Q24H [facility] Last Admin: 10/20/18 18:09 Dose: Not Given Polyethylene Glycol (Miralax) 17 gm PO ONETIME ONE Stop: 10/22/18 18:01 - Exam General: Alert, Oriented HEENT: Mucous Membr. Moist/[place] Neck: Supple Lungs: Clear to Auscultation, Normal Respiratory Effort Cardiovascular: Regular Rate, Regular Rhythm GI/Abdominal Exam: Normal Bowel Sounds, Soft, Non-Tender Extremities: Normal Inspection, No Pedal Edema Skin: Warm, Dry Neurological: No New Focal Deficit - Problem List & Annotations (1) Anemia SNOMED Code(s): 504914481 Code(s): D64.9 - ANEMIA, UNSPECIFIED Status: Acute Priority: High Current Visit: Yes Qualifiers: Anemia type: unspecified type Qualified Code(s): D64.9 - Anemia, unspecified (2) Shortness of breath SNOMED Code(s): 891506586 Code(s): R06.02 - SHORTNESS OF BREATH Status: Acute Priority: High Current Visit: Yes (3) Type II diabetes mellitus, uncontrolled SNOMED Code(s): 719345729, 334378476 Code(s): E11.65 - TYPE 2 DIABETES MELLITUS WITH HYPERGLYCEMIA Status: Acute Priority: High Current Visit: Yes Qualifiers: Glycemic state: with hyperglycemia Qualified Code(s): E11.65 - Type 2 diabetes mellitus with hyperglycemia (4) Hematochezia SNOMED Code(s): 858317565 Code(s): K92.1 - MELENA Status: Acute Priority: High Current Visit: Yes - Problem List Review Problem List Initiated/Reviewed/Updated: Yes - My Orders Last 24 Hours: My Active Orders 10/22/18 10:18 STOOL CULTURE [MREF] Routine 10/22/18 15:19 Post Void Residual [OM.PC] Routine 10/23/18 05:11 BASIC METABOLIC PANEL,BMP [CHEM] AM C-REACTIVE PROTEIN [CHEM] AM CBC WITH AUTO DIFF [HEME] AM - Assessment Assessment:: 1. Hematochezia 2. Anemia 3. Shortness of breath 4. Uncontrolled DM - Plan Plan:: Patient stable this am. Continues to feel "tired". Gets lightheaded at times when up. Does believe the blood in his rectum is related to his lactose intolerance as is worse when consuming that. Has mild abdominal discomfort, especially in RLQ. Afebrile. WBC normal, hemoglobin down to 7.7 this am. Urine culture is positive for gram negative rods. Proceed with CT of abdomen and pelvis this am. Continue Rocephin. Plan for colonoscopy on am. Obtain stool cultures. Recheck labs in am. 10-22-2018 Patient doing well this am. Has not had any loose stools as of yet. Abdomen still sore with palpation. No nausea or vomiting. He is ambulatory in room, tolerating well. No fevers. Blood pressure stable. WBC 9.0. Hemoglobin up slightly today at 8.4. Creatinine 1.6. Blood sugar 249 this am. Urine culture positive for serratia phymuthica, sensitive to Rocephin. Will start prep for colonoscopy planned for tomorrow. Stool studies as able. CT scan did show concerns for neurogenic bladder versus bladder outlet obstruction, will follow up with Dr. Orozco at later time.
[2018-10-22] MEDS ORDERED: Polyethylene Glycol 3350 Powder 238 GM Bot PO ONE (18:00)
[2018-10-22] MEDS ORDERED: Polyethylene Glycol 3350 Powder 17 GM Packet PO ONE (18:00)
[2018-10-22] MEDS: Bisacodyl 5 MG Tab PO SCH (18:11)
[2018-10-22] MEDS: cefTRIAXone 1 GM Vial IV SCH (19:31)
[2018-10-22] MEDS: Insulin Glargine,Human Rec. Analog 100 Units/ML 3 ML Pen SUBCUT SCH (19:35)
[2018-10-23] MEDS ORDERED: Lactated Ringers 1,000 ML IV SCH (05:00)
[2018-10-23] MEDS ORDERED: Meperidine PF 50 MG/ML Syringe IV ONE ×2 (06:35→12:49)
[2018-10-23] MEDS ORDERED: Midazolam 1 MG/ML 2 ML SDV IV ONE ×2 (06:35→12:49)
[2018-10-23 07:50] LABS: CHLORIDE,CL 110 mEq/L (98-106); SODIUM,NA 139 mEq/L (136-145)
[2018-10-23] MEDS: Pantoprazole 40 MG Tab.CR PO SCH (07:54)
[2018-10-23] MEDS: Ferrous Sulfate 324 MG Tab.EC PO SCH (07:54)
[2018-10-23] MEDS: Insulin Regular, Human 100 Units/ML 10 ML Vial SUBCUT SCH ×2 (07:55→12:22)
--- NOTE | 2018-10-23 14:01 | OR ---
DATE OF OPERATION: 10/23/2018 PREOPERATIVE DIAGNOSIS: 1. HEMATOCHEZIA. 2. CHRONIC DIARRHEA. POSTOPERATIVE DIAGNOSIS: 1. HEMATOCHEZIA. 2. CHRONIC DIARRHEA. SURGEON: Sidney Crespo MD PROCEDURE: DIAGNOSTIC COLONOSCOPY WITH RANDOM BIOPSIES x5. ANESTHESIA: Conscious sedation with Versed and Demerol with continuous O2 saturation monitoring and nurse assist. The patient's saturations remained above 90% for the entire procedure. COMPLICATIONS: None. SPECIMEN: Random biopsies x6 from terminal ileum to rectum. FINDINGS: 1. Full-length colonoscopy. 2. Minimal sigmoid diverticulosis. 3. Internal hemorrhoids. RECOMMENDATIONS: Ongoing medical followup pending path reports. INDICATIONS: The patient is in the hospital for other concerns, but does have a history of chronic hematochezia and diarrhea. He also suffers from iron deficiency anemia. We elected to proceed with diagnostic colonoscopy. DESCRIPTION OF PROCEDURE: The patient was prepped and draped, placed in the left lateral decubitus position. A lubricated Olympus colonoscope was inserted and easily advanced to the cecum. We were able to directly visualize the ileocecal valve, palpate and visualize the light in the right lower quadrant. The bowel prep was excellent. We did intubate into the terminal ileum. Normal- appearing mucosa seen. Biopsy was taken throughout the rest of the colon. Other than some very minimal diverticular disease in the sigmoid area, I could find no signs of polyps, mass, ulceration, or bleeding sites. There were no vascular abnormalities or signs of colitis. No identifiable etiology of his hematochezia other than internal hemorrhoids, which were visualized upon retroflexion in the rectum. We did do random biopsies throughout the colon, totalling 5 more other than the terminal ileum. Air was then suctioned from the colon and scope removed without complication. MARISOL/TAMMY /[id number]
--- NOTE | 2018-10-26 09:44 | PCM.DCSUM1 ---
Discharge Summary - Hospital Course Free Text/Narrative:: Patient presented to clinic to see Dr. Crespo for reestablishment of care. He had moved to [place] and recently moved back. Was diagnosed with Type 1 Diabetes, has been using Levemir and novolog at mealtimes per sliding scale. His blood sugar log shows adequate control despite his A1C of 13, thought to be related to his anemia. Admitted to several months of blood in stool, thought to be related to his irritable bowel, possible lactose intolerance. His hemoglobin noted low at 8. Also found to have UTI. Has had issues with intermittent incontinence at times as well. Admitted for treatment of UTI, work up of his anemia, control of his blood sugars. Started on IV Rocephin. Sliding scale insulin. Diagnosis: Stroke: No Modified [place] Scale: No Symptoms at All Modified [place] Scale Score: 0 - Discharge Data Discharge Date: 10/23/18 Discharge Disposition: Home, Self-Care 01 Condition: Good - Discharge Diagnosis/Problem(s) (1) Anemia SNOMED Code(s): 270701971 ICD Code: D64.9 - ANEMIA, UNSPECIFIED Status: Acute Priority: High Qualifiers: Anemia type: unspecified type Qualified Code(s): D64.9 - Anemia, unspecified (2) Shortness of breath SNOMED Code(s): 802624211 ICD Code: R06.02 - SHORTNESS OF BREATH Status: Acute Priority: High (3) Type II diabetes mellitus, uncontrolled SNOMED Code(s): 358477732, 168332243 ICD Code: E11.65 - TYPE 2 DIABETES MELLITUS WITH HYPERGLYCEMIA Status: Acute Priority: High Qualifiers: Glycemic state: with hyperglycemia Qualified Code(s): E11.65 - Type 2 diabetes mellitus with hyperglycemia (4) Hematochezia SNOMED Code(s): 051582777 ICD Code: K92.1 - MELENA Status: Acute Priority: High - Patient Summary/Data Complications: none Consults: Consultations 10/20/18 17:34 Consult to Diabetic Nurse Specialist [CONS] Routine Consult to Glass Beveler [CONS] Routine Hospital Course: Patient admitted for UTI, anemia and uncontrolled diabetes. Urine culture did grow Serratia Plymuthica, covered by Rocephin. Blood sugars have been variable , 59 to 404, covered with sliding scale insulin. Patient will meet with paraeducator next week for further review as well. WBC has remained stable , patient afebrile. Hemoglobin did drop to 7.7, CT scan of abdomen and pelvis done. No acute abnormalities of bowel noted. Did have evidence of bladder wall thickening, concerning for neurogenic bladder versus bladder outlet obstruction. Post void residual done with straight cath, [address] Orozco informed due to report, PVR and issues with incontinence and bladder infections. Will need further follow up with Dr. Orozco on November 21 in [place]. Patient did have colonoscopy due to heme positive stool. No overall concerns noted. Will start Metformin on discharge, continue Levemir. Ceftin for additional 10 days for UTI until follow up with Dr. Orozco. Continue iron for anemia. Follow up with Dr. Crespo in 10 days. Follow up with paraeducator next week. - Patient Instructions Diet: Diabetic Diet Activity: As Tolerated - Discharge Plan *PRESCRIPTION DRUG MONITORING PROGRAM REVIEWED*: No *COPY OF PRESCRIPTION DRUG MONITORING REPORT IN PATIENT ELVIA: No Prescriptions/Med Rec: Cefuroxime Axetil [Ceftin] 250 mg PO BID #20 tablet metFORMIN [Glucophage XR] 500 mg PO BIDMEALS #60 tab.er Home Medications: Home Meds Ferrous Sulfate 324 mg PO BIDMEALS #60 tab.ec 01/22/18 [Rx] Cefuroxime Axetil [Ceftin] 250 mg PO BID #20 tablet 10/23/18 [Rx] Insulin Detemir [Levemir] 15 unit SUBCUT BEDTIME #1 10/23/18 [Rx] metFORMIN [Glucophage XR] 500 mg PO BIDMEALS #60 tab.er 10/23/18 [Rx] Referrals: Corey Orozco MD [Physician] - (See Dr. Orozco on November 21 at 1040 in [place] ) Sidney Crespo MD [Primary Care Provider] - (Dr. crespo on October 30 at 1245 in [place]) - Discharge Summary/Plan Comment DC Time >30 min.: No - General Info Date of Service: 10/23/18 Admission Dx/Problem (Free Text: Hematochezia Anemia Shortness of breath Uncontrolled DM Functional Status: Reports: Pain Controlled, Tolerating Diet, Ambulating, Urinating - Review of Systems General: Reports: Fatigue. Denies: Fever, Weakness, Malaise HEENT: Reports: No Symptoms Pulmonary: Denies: Shortness of Breath, Cough Cardiovascular: Denies: Chest Pain, Edema, Lightheadedness Gastrointestinal: Denies: Abdominal Pain, Nausea, Vomiting Genitourinary: Reports: Frequency, Incontinence Musculoskeletal: Reports: No Symptoms Skin: Reports: No Symptoms Neurological: Reports: No Symptoms - Patient Data Vitals - Most Recent: Last Vital Signs Temp 96.6 F 10/23/18 11:42 Pulse 100 10/23/18 11:42 Resp 20 10/23/18 11:42 BP 119/75 10/23/18 11:42 Pulse Ox 100 10/23/18 11:42 Weight - Most Recent: 178 lb KEVIN Results - Last 24 hrs: Microbiology 10/22/18 10:18 Stool Aerobic Culture - Preliminary Stool / Feces - Stool, Formed Med Orders - Current: Current Medications Discontinued Medications Bisacodyl (Dulcolax) 10 mg PO DAILY@1800 [facility] Stop: 10/23/18 18:01 Last Admin: 10/22/18 18:11 Dose: 10 mg Ceftriaxone Sodium (Rocephin) 1 gm IM ONETIME ONE Stop: 10/20/18 17:51 Last Admin: 10/20/18 17:57 Dose: Not Given Ceftriaxone Sodium (Rocephin) 1 gm IM Q24H [facility] Ceftriaxone Sodium (Rocephin) 1 gm IV Q24H [facility] Ceftriaxone Sodium (Rocephin) 1 gm IV Q24H [facility] Ceftriaxone Sodium (Rocephin) 1 gm IV Q24H [facility] Last Admin: 10/22/18 19:31 Dose: 1 gm Ferrous Sulfate (Ferrous Sulfate) 324 mg PO BIDMEALS [facility] Last Admin: 10/23/18 07:54 Dose: 324 mg Sodium Chloride (Normal Saline) 1,000 mls @ 75 mls/hr IV ASDIRECTED [facility] Last Infusion: 10/21/18 07:27 Dose: Infused Lactated Ringer's (Ringers, Lactated) 1,000 mls @ 125 mls/hr IV ASDIRECTED [facility] Last Admin: 10/23/18 05:54 Dose: 125 mls/hr Insulin Glargine (Lantus Solostar) 20 units SUBCUT BEDTIME [facility] Last Admin: 10/22/18 19:35 Dose: 20 units Insulin Human Regular (Novolin R) 0 unit SUBCUT QIDACANDBED [facility]; Protocol Last Admin: 10/21/18 12:06 Dose: Not Given Insulin Human Regular (Novolin R) 0 unit SUBCUT 0800,1200,1730,2100 [facility]; Protocol Last Admin: 10/23/18 12:22 Dose: 8 units Iopamidol (Isovue-370 (76%)) 100 ml IVPUSH ONETIME ONE Stop: 10/21/18 08:18 Last Admin: 10/21/18 09:53 Dose: 100 ml Meperidine HCl (Demerol) 50 mg IV .STK-MED ONE Stop: 10/23/18 06:36 Last Admin: 10/23/18 06:35 Dose: 50 mg Midazolam HCl (Versed 1 Mg/Ml) 6 mg IV .STK-MED ONE Stop: 10/23/18 06:36 Last Admin: 10/23/18 06:35 Dose: 6 mg Ondansetron HCl (Zofran Odt) 4 mg PO Q6H PRN PRN Reason: nausea, able to take PO Pantoprazole Sodium (Protonix Iv) 40 mg IVPUSH Q24H [facility] Last Admin: 10/20/18 18:09 Dose: Not Given Pantoprazole Sodium (Protonix) 40 mg PO DAILY [facility] Last Admin: 10/23/18 07:54 Dose: 40 mg Polyethylene Glycol (Miralax) 17 gm PO ONETIME ONE Stop: 10/22/18 18:01 Polyethylene Glycol (Miralax) 238 gm PO ONETIME ONE Stop: 10/22/18 18:01 Last Admin: 10/22/18 17:19 Dose: 238 gm Sodium Chloride (Saline Flush) 10 ml FLUSH ASDIRECTED PRN PRN Reason: Keep Vein Open - Exam General: Reports: Alert, Oriented HEENT: Reports: Mucous Membr. Moist/[place] Neck: Reports: Supple Lungs: Reports: Clear to Auscultation, Normal Respiratory Effort Cardiovascular: Reports: Regular Rate, Regular Rhythm GI/Abdominal Exam: Normal Bowel Sounds, Soft, Non-Tender Extremities: Normal Inspection, No Pedal Edema Skin: Reports: Warm, Dry Neurological: Reports: No New Focal Deficit
== END 2018-10-23 12:50 | disposition home or self-care (01) | DRG 394 ==
LOC: CC.FCMC 15:06 → CC.MS 15:06 → UNDOADMIN 16:35 → CC.MS 16:35
PROVIDERS: ADMIT Family Medicine; ATTEND Family Medicine
PROC: 0DBK8ZX Excision of Ascending Colon, Via Natural or Artificial Opening Endoscopic, Diagnostic (ICD-10-PCS; principal; 2018-10-23)
PROC: 0DBL8ZX Excision of Transverse Colon, Via Natural or Artificial Opening Endoscopic, Diagnostic (ICD-10-PCS; 2018-10-23)
PROC: 0DBM8ZX Excision of Descending Colon, Via Natural or Artificial Opening Endoscopic, Diagnostic (ICD-10-PCS; 2018-10-23)
DX: K64.8 Other hemorrhoids (principal); N39.0 Urinary tract infection, site not specified; E11.65 Type 2 diabetes mellitus with hyperglycemia; K58.0 Irritable bowel syndrome with diarrhea; K57.30 Diverticulosis of large intestine without perforation or abscess without bleeding; D64.9 Anemia, unspecified; F32.9 Major depressive disorder, single episode, unspecified; R06.02 Shortness of breath; E73.9 Lactose intolerance, unspecified; B96.89 Other specified bacterial agents as the cause of diseases classified elsewhere; F10.10 Alcohol abuse, uncomplicated; Z77.22 Contact with and (suspected) exposure to environmental tobacco smoke (acute) (chronic); Z79.4 Long term (current) use of insulin
CPT/HCPCS: 36415; 71046; 74177; 80048; 80053; 81001; 82270; 82728; 82784; 82962; 83036; 83516; 83540; 83550; 83880; 84443; 85018; 85025; 85379; 85651; 86140; 86850; 86900; 86901; 87045; 87046; 87086; 87088; 87186; 87493; 89055; 93005; A9270-GY; J0696; J1815-GY; J2175; J2250; J7030; J7120; Q9967

== ENCOUNTER 2018-12-09 17:43 | Emergency (ER) | payer MEDICAID ==
[2018-12-09 18:17] LABS: CHLORIDE,CL 109 mEq/L (98-106); SODIUM,NA 141 mEq/L (136-145)
[2018-12-09] MEDS ORDERED: cefTRIAXone 1 GM Vial IVPUSH ONE (18:36)
[2018-12-09] MEDS ORDERED: Sodium Chloride 0.9% 1,000 ML IV SCH (18:45)
--- NOTE | 2018-12-09 18:48 | EDM.PDOC ---
ED HPI GENERAL MEDICAL PROBLEM - General Chief Complaint: Gastrointestinal Problem Stated Complaint: ABDOMINAL PAIN, RECTAL BLEEDING Time Seen by Provider: 12/09/18 18:17 Source of Information: Reports: Patient, Family History Limitations: Reports: No Limitations - History of Present Illness INITIAL COMMENTS - FREE TEXT/NARRATIVE: Patient presents with with RLQ abdominal pain. States "feels waves of pain , like bowel is filling and then has bowel movements and it gets better". Concerned as noted blood in his stools again. Stools are firm, no diarrhea. History of hematochezia. Had colonoscopy in October for this and was essentially negative except notable internal hemorrhoids. Biopsies x5 were done that were negative. Patient has not had any bleeding since then. Also has history of neurogenic bladder. Has seen Dr. Orozco for consult, is scheduled for testing on December 15 in [place]. Has not had any incontinence issues since last treated for his UTI. Denies any fevers. Continues to have episodes of diffuse sweating. No nausea or vomiting. Has been eating well. Blood sugars have been running around 200-250 per . Onset: Gradual Duration: Day(s):, Intermittent Location: Reports: Abdomen Quality: Reports: Sharp Severity: Moderate Associated Symptoms: Reports: Diaphoresis. Denies: Confusion, Chest Pain, Fever /Chills, Headaches, Loss of Appetite, Nausea/Vomiting, Shortness of Breath, Weakness Right Upper Abdomen Pain Score (Numeric/FACES): 4 - Related Data Allergies Allergy/AdvReac Type Severity Reaction Status Date / Time No Known Allergies Allergy Verified 12/09/18 18:13 Home Meds: Home Meds Ferrous Sulfate 324 mg PO BIDMEALS #60 tab.ec 01/22/18 [Rx] Insulin Detemir [Levemir] 15 unit SUBCUT BEDTIME #1 10/23/18 [Rx] metFORMIN [Glucophage XR] 500 mg PO BIDMEALS #60 tab.er 10/23/18 [Rx] Insulin Aspart [NovoLOG] 1 - 5 unit SUBCUT WITHMEALSANDBED PRN 12/09/18 [History ] diphenhydrAMINE [Benadryl] 25 mg PO BEDTIME PRN 12/09/18 [History] Past Medical History HEENT History: Reports: Cataract, Glaucoma Respiratory History: Reports: SOB Gastrointestinal History: Reports: GI Bleed Genitourinary History: Reports: Retention, Urinary Neurological History: Reports: Neuropathy, Diabetic Endocrine/Metabolic History: Reports: Diabetes, Type II - Past Surgical History Musculoskeletal Surgical History: Reports: Other (See Below) 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 Denies: Fever, Chills, Weakness, Decreased Appetite HEENT: Reports: No Symptoms Respiratory: Denies: Shortness of Breath, Cough Cardiovascular: Denies: Chest Pain, Edema, Lightheadedness Endocrine: Reports: Fatigue GI/Abdominal: Reports: Abdominal Pain, Hematochezia. Denies: Constipation, Diarrhea, Nausea, Vomiting : Denies: Dysuria, Hematuria, Incontinence Musculoskeletal: Reports: No Symptoms Skin: Reports: No Symptoms Neurological: Reports: No Symptoms Psychiatric: Reports: No Symptoms ED EXAM, GI/ABD - Physical Exam Exam: See Below Exam Limited By: No Limitations General Appearance: Alert, WD/WN, No Apparent Distress Ears: Normal External Exam, Normal TMs Nose: Normal Inspection, Normal Mucosa, No Blood Throat/Mouth: Normal Inspection, Normal Oropharynx Head: Normocephalic Neck: Normal Inspection, Supple, Non-Tender Respiratory/Chest: No Respiratory Distress, Lungs Clear, Normal Breath Sounds Cardiovascular: Regular Rate, Rhythm GI/Abdominal Exam: Normal Bowel Sounds, Soft, Tender (diffusely tender throughout) Extremities: Normal Inspection, No Pedal Edema Neurological: Alert, Oriented Skin Exam: Cool, Other (clammy) Course - Vital Signs Last Recorded V/S: Last Vital Signs Temp 98.4 F 12/09/18 17:47 Pulse 99 12/09/18 17:47 Resp 18 12/09/18 17:47 BP 146/101 H 12/09/18 18:33 Pulse Ox 97 12/09/18 17:47 - Orders/Labs/Meds Orders: Active Orders 24 hr Category Date Time Status Abdomen 2V AP Flat Upright [CR] Stat Exams 12/09/18 17:58 Taken CULTURE URINE [RM] Stat Lab 12/09/18 18:04 Received Sodium Chloride 0.9% [Normal Saline] 1,000 ml Med 12/09/18 18:45 Active IV ASDIRECTED Medication Orders Sodium Chloride (Normal Saline) 1,000 mls @ 333 mls/hr IV ASDIRECTED ANTONIA Last Admin: 12/09/18 18:59 Dose: 333 mls/hr Labs: Laboratory Tests 12/09/18 12/09/18 12/09/18 Range/Units 18:01 18:01 18:04 WBC 7.9 (5.0-10.0) 10^3/uL RBC 4.01 L (4.50-6.00) 10^6/uL Hgb 10.4 L (14.0-18.0) g/dL Hct 32.3 L (40.0-54.0) % MCV 80.5 L (82.0-94.0) fL MCH 25.9 L (27.0-32.0) pg MCHC 32.2 L (33.0-38.0) g/dL RDW Coeff of Jazzmine 17.5 H (11.0-15.0) % Plt Count 286 (150-400) 10^3/uL Neut % (Auto) 62.4 (35-85) % Lymph % (Auto) 23.8 (10-55) % [place] % (Auto) 10.4 (0-16) % Eos % (Auto) 2.8 (0-5) % Baso % (Auto) 0.6 (0-3) % Neut # (Auto) 4.90 (1.80-7.00) 10^3/uL Lymph # (Auto) 1.87 (1.00-4.80) 10^3/uL [place] # (Auto) 0.82 H (0.00-0.80) 10^3/uL Eos # (Auto) 0.22 (0.00-0.45) 10^3/uL Baso # (Auto) 0.05 10^3/uL Sodium 141 (136-145) mEq/L Potassium 5.5 H (3.5-5.0) mEq/L Chloride 109 H (98-106) mEq/L Carbon Dioxide 23 (21-32) mmol/L BUN 47 H D (7-18) mg/dL Creatinine 1.9 H D (0.7-1.3) mg/dL Est Cr Clr Drug Dosing 50.69 mL/min Estimated GFR (MDRD) 39 L (>=60) mL/min Glucose 152 H (75-99) mg/dL Calcium 8.4 (8.4-10.1) mg/dL Total Bilirubin 0.2 (0.0-1.0) mg/dL AST 19 (15-37) U/L ALT 31 (12-78) U/L Alkaline Phosphatase 237 H (46-116) U/L C-Reactive Protein < 0.2 L (0.2-0.8) mg/dL Total Protein 7.5 (6.4-8.2) g/dL Albumin 3.6 (3.4-5.0) g/dL Urine Color Yellow (YELLOW) Urine Appearance Clear (CLEAR) Urine pH 6.0 (4.5-8.0) Ur Specific [place] 1.020 (1.003-1.020) Urine Protein 30 H (NEGATIVE) mg/dL Urine Glucose (UA) Negative (NEGATIVE) mg/dL Urine Ketones Negative (NEGATIVE) mg/dL Urine Occult Blood Trace-lysed H (NEGATIVE) Urine Nitrite Negative (NEGATIVE) Urine Bilirubin Negative (NEGATIVE) Urine Urobilinogen 0.2 (0.2-1.0) EU/dL Ur Leukocyte Esterase Small H (NEGATIVE) Urine RBC Not seen (0-5) /HPF Urine WBC 30-40 H (0-5) /HPF Urine WBC Clumps Moderate H (NOT SEEN) /HPF Urine Bacteria Moderate H (NOT SEEN) /HPF Urinalysis Comment See note Meds: Medications Generic Name Dose Route Start Last Admin Trade Name Freq PRN Reason Stop Dose Admin Sodium Chloride 1,000 mls @ 333 mls/hr 12/09/18 18:45 12/09/18 18:59 Normal Saline IV 333 mls/hr ASDIRECTED ANTONIA Administration Discontinued Medications Generic Name Dose Route Start Last Admin Trade Name Freq PRN Reason Stop Dose Admin Ceftriaxone Sodium 1 gm 12/09/18 18:36 12/09/18 18:59 Rocephin IVPUSH 12/09/18 18:37 1 gm ONETIME ONE Administration - Re-Assessments/Exams Free Text/Narrative Re-Assessment/Exam: 12/09/18 21:51 Patient doing well. Blood pressure Departure - Departure Time of Disposition: 22:04 Disposition: Home, Self-Care 01 Condition: Good Clinical Impression: UTI, Urinary tract infectious disease, Dehydration - Discharge Information *PRESCRIPTION DRUG MONITORING PROGRAM REVIEWED*: No *COPY OF PRESCRIPTION DRUG MONITORING REPORT IN PATIENT ELVIA: No Referrals: Sidney Crespo MD [Primary Care Provider] - Forms: ED Department Discharge Additional Instructions: 1. Push fluids 2. Bactrim DS one twice a day for 10 days 3. Keep scheduled appointments with Dr. Orozco in [place] 4. Return if further concerns - My Orders Last 24 Hours: My Active Orders 12/09/18 17:58 Abdomen 2V AP Flat Upright [CR] Stat 12/09/18 18:04 CULTURE URINE [RM] Stat 12/09/18 18:45 Sodium Chloride 0.9% [Normal Saline] 1,000 ml IV ASDIRECTED - Assessment/Plan Last 24 Hours: My Active Orders 12/09/18 17:58 Abdomen 2V AP Flat Upright [CR] Stat 12/09/18 18:04 CULTURE URINE [RM] Stat 12/09/18 18:45 Sodium Chloride 0.9% [Normal Saline] 1,000 ml IV ASDIRECTED
== END 2018-12-09 22:14 | disposition home or self-care (01) ==
LOC: CC.ED 17:43
DX: N39.0 Urinary tract infection, site not specified (principal); E86.0 Dehydration; E11.9 Type 2 diabetes mellitus without complications; Z79.4 Long term (current) use of insulin; Z79.899 Other long term (current) drug therapy
CPT/HCPCS: 36415; 74019; 80053; 81001; 85025; 86140; 87086; 87088; 87186; 96361; 96374; 99283-25; J0696; J7030

== ENCOUNTER 2018-12-30 18:58 | Emergency (ER) | payer MEDICAID ==
[2018-12-30 19:31] LABS: CHLORIDE,CL 107 mEq/L (98-106); SODIUM,NA 141 mEq/L (136-145)
--- NOTE | 2018-12-30 19:35 | EDM.PDOC ---
ED HPI GENERAL MEDICAL PROBLEM - General Chief Complaint: Genitourinary Problem Stated Complaint: uti Time Seen by Provider: 12/30/18 19:20 Source of Information: Reports: Patient History Limitations: Reports: No Limitations - History of Present Illness INITIAL COMMENTS - FREE TEXT/NARRATIVE: Sidney is a 43 year old male who presents to the ED with c/o right sided low back pain. Reports he does have history of frequent UTIs and kidney stones. Did recently see urology. Significant other reports he has been more sluggish, which he often gets when he has UTI. He denies any injury to back. Denies any dysuria, frequency, urgency, fever, or chills, abdominal pain, N/V/D. Onset Date: 12/28/18 Duration: Getting Worse Location: Reports: Back (right sided) Quality: Reports: Ache Severity: Moderate Associated Symptoms: Denies: Cough, Fever/Chills, Loss of Appetite, Malaise, Nausea/Vomiting, Weakness Right Lower Back Pain Score (Numeric/FACES): 4 - Related Data Allergies Allergy/AdvReac Type Severity Reaction Status Date / Time No Known Allergies Allergy Verified 12/30/18 19:01 Home Meds: Home Meds Ferrous Sulfate 324 mg PO BIDMEALS #60 tab.ec 01/22/18 [Rx] Insulin Detemir [Levemir] 15 unit SUBCUT BEDTIME #1 10/23/18 [Rx] metFORMIN [Glucophage XR] 500 mg PO BIDMEALS #60 tab.er 10/23/18 [Rx] Insulin Aspart [NovoLOG] 1 - 5 unit SUBCUT WITHMEALSANDBED PRN 12/09/18 [History ] diphenhydrAMINE [Benadryl] 25 mg PO BEDTIME PRN 12/09/18 [History] Past Medical History HEENT History: Reports: Cataract, Glaucoma Respiratory History: Reports: SOB Gastrointestinal History: Reports: GI Bleed Genitourinary History: Reports: Retention, Urinary Neurological History: Reports: Neuropathy, Diabetic Endocrine/Metabolic History: Reports: Diabetes, Type II - Past Surgical History Musculoskeletal Surgical History: Reports: Other (See Below) 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 ED EXAM, RENAL/ - Physical Exam Exam: See Below Exam Limited By: No Limitations General Appearance: Alert, WD/WN, No Apparent Distress Head: Atraumatic, Normocephalic Neck: Normal Inspection, Supple, Non-Tender, Full Range of Motion Respiratory/Chest: No Respiratory Distress, Lungs Clear, Normal Breath Sounds, No Accessory Muscle Use, Chest Non-Tender Cardiovascular: Normal Peripheral Pulses, Regular Rate, Rhythm, No Edema, No Gallop, No JVD, No Murmur, No Rub GI/Abdominal: Normal Bowel Sounds, Soft, Non-Tender, No Organomegaly, No Distention, No Abnormal Bruit, No Mass Back Exam: Normal Inspection, Full Range of Motion. No: CVA Tenderness (L), CVA Tenderness (R), Decreased Range of Motion, Paraspinal Tenderness, Vertebral Tenderness Extremities: Normal Inspection, Normal Range of Motion, Non-Tender, Normal Capillary Refill, No Pedal Edema Neurological: Alert, Oriented, CN II-XII Intact, Normal Cognition, Normal Gait, Normal Reflexes, No Motor/Sensory Deficits Psychiatric: Normal Affect, Normal Mood Course - Vital Signs Last Recorded V/S: Last Vital Signs Temp 97.7 F 12/30/18 19:02 Pulse 93 12/30/18 19:02 Resp 16 12/30/18 19:02 BP 100/66 12/30/18 19:02 Pulse Ox 100 12/30/18 19:02 - Orders/Labs/Meds Labs: Laboratory Tests 12/30/18 12/30/18 12/30/18 Range/Units 19:04 19:20 19:20 WBC 6.6 (5.0-10.0) 10^3/uL RBC 3.85 L (4.50-6.00) 10^6/uL Hgb 10.0 L (14.0-18.0) g/dL Hct 31.1 L (40.0-54.0) % MCV 80.8 L (82.0-94.0) fL MCH 26.0 L (27.0-32.0) pg MCHC 32.2 L (33.0-38.0) g/dL RDW Coeff of Jazzmine 17.2 H (11.0-15.0) % Plt Count 275 (150-400) 10^3/uL Neut % (Auto) 63.5 (35-85) % Lymph % (Auto) 25.1 (10-55) % [place] % (Auto) 7.7 (0-16) % Eos % (Auto) 3.2 (0-5) % Baso % (Auto) 0.5 (0-3) % Neut # (Auto) 4.21 (1.80-7.00) 10^3/uL Lymph # (Auto) 1.66 (1.00-4.80) 10^3/uL [place] # (Auto) 0.51 (0.00-0.80) 10^3/uL Eos # (Auto) 0.21 (0.00-0.45) 10^3/uL Baso # (Auto) 0.03 10^3/uL Sodium 141 (136-145) mEq/L Potassium 4.8 (3.5-5.0) mEq/L Chloride 107 H (98-106) mEq/L Carbon Dioxide 25 (21-32) mmol/L BUN 31 H (7-18) mg/dL Creatinine 1.4 H (0.7-1.3) mg/dL Est Cr Clr Drug Dosing 68.80 mL/min Estimated GFR (MDRD) 55 L (>=60) mL/min Glucose 184 H (75-99) mg/dL Calcium 8.1 L (8.4-10.1) mg/dL C-Reactive Protein < 0.2 L (0.2-0.8) mg/dL Urine Color Yellow (YELLOW) Urine Appearance Clear (CLEAR) Urine pH 5.5 (4.5-8.0) Ur Specific [place] 1.015 (1.003-1.020) Urine Protein Negative (NEGATIVE) mg/dL Urine Glucose (UA) 100 H (NEGATIVE) mg/dL Urine Ketones Negative (NEGATIVE) mg/dL Urine Occult Blood Negative (NEGATIVE) Urine Nitrite Negative (NEGATIVE) Urine Bilirubin Negative (NEGATIVE) Urine Urobilinogen 0.2 (0.2-1.0) EU/dL Ur Leukocyte Esterase Negative (NEGATIVE) Urine RBC Not seen (0-5) /HPF Urine WBC Not seen (0-5) /HPF Ur Squamous Epith Cells Occasional H (NOT SEEN) /HPF - Re-Assessments/Exams Free Text/Narrative Re-Assessment/Exam: 12/30/18 19:35 Labs all stable. Discussed differentials for low back pain. Departure - Departure Time of Disposition: 19:38 Disposition: Home, Self-Care 01 Condition: Good Clinical Impression: Low back strain Qualifiers: Encounter type: initial encounter Qualified Code(s): S39.012A - Strain of muscle, fascia and tendon of lower back, initial encounter - Discharge Information *PRESCRIPTION DRUG MONITORING PROGRAM REVIEWED*: Not Applicable *COPY OF PRESCRIPTION DRUG MONITORING REPORT IN PATIENT ELVIA: Not Applicable Instructions: Low Back Sprain Forms: ED Department Discharge Additional Instructions: - Labs all stable - Rest and push fluids - Alternate Tylenol and ibuprofen every 3-4 hours as needed - Follow up in clinic if symptoms worsen or do not improve - Return to ED for any emergent needs
== END 2018-12-30 19:45 | disposition home or self-care (01) ==
LOC: CC.ED 18:58
DX: S39.012A Strain of muscle, fascia and tendon of lower back, initial encounter (principal); E11.40 Type 2 diabetes mellitus with diabetic neuropathy, unspecified; Z79.4 Long term (current) use of insulin; Z79.899 Other long term (current) drug therapy; X50.9XXA Other and unspecified overexertion or strenuous movements or postures, initial encounter
CPT/HCPCS: 36415; 80048; 81001; 85025; 86140; 99283

== ENCOUNTER 2019-02-11 01:11 | Emergency (ER) | payer MEDICAID ==
[2019-02-11 01:38] LABS: CHLORIDE,CL 112 mEq/L (98-106); SODIUM,NA 142 mEq/L (136-145)
[2019-02-11] MEDS ORDERED: Lactated Ringers 1,000 ML ONE (01:50)
[2019-02-11] MEDS ORDERED: 50% Dextrose in Water 50 ML Syringe ONE (02:11)
[2019-02-11] MEDS ORDERED: 50% Dextrose in Water 50 ML Syringe IVPUSH ONE ×2 (02:21→03:43)
--- NOTE | 2019-02-11 04:17 | EDM.PDOC ---
ED HPI GENERAL MEDICAL PROBLEM - General Chief Complaint: Diabetic Complaint Stated Complaint: Hypoglycemia Time Seen by Provider: 02/11/19 01:20 Source of Information: Reports: Patient, Family History Limitations: Reports: No Limitations - History of Present Illness INITIAL COMMENTS - FREE TEXT/NARRATIVE: Sidney is a 44 yo male who presents to the ED via [facility] with concerns of a low blood sugar. EMS was call to the scene of a diabetic male with a blood sugar of 20, breathing and unresponsive. EMS notes state he responded to painful stimuli only. Patient was diaphoretic. EMS did give Glucagon IM and patients rapidly improved, was coherent and alert. Blood sugar was rechecked and was 40, 56, 69 and 70 after Glucagon. He admits around 2300 tonight he had drank a coke and ate some food. He checked his blood sugar and it was 200 so he took 10 units of Novolog. He waited about 20 minutes and rechecked his blood sugar which was 198, so he took another 10 units. He states his diabetes was severely uncontrolled last year with A1c's in the 14's. He recently brought it down to 6.9% since then. States he usually does a sliding scale of his Novolog and takes 20 units of Levemir at bedtime. States he used to take Metformin but was stopped because of diabetes. Treatments CREDIT SPECIALIST: Reports: Glucagon - Related Data Allergies Allergy/AdvReac Type Severity Reaction Status Date / Time No Known Allergies Allergy Verified 12/30/18 19:01 Home Meds: Home Meds Ferrous Sulfate 324 mg PO BIDMEALS #60 tab.ec 01/22/18 [Rx] Insulin Aspart [NovoLOG] 1 - 5 unit SUBCUT WITHMEALSANDBED PRN 12/09/18 [History ] Insulin Detemir [Levemir] 20 unit SUBCUT BEDTIME 02/11/19 [History] Past Medical History HEENT History: Reports: Cataract, Glaucoma Respiratory History: Reports: SOB Gastrointestinal History: Reports: GI Bleed Genitourinary History: Reports: Renal Disease Neurological History: Reports: Neuropathy, Diabetic Psychiatric History: Reports: Depression Endocrine/Metabolic History: Reports: Diabetes, Type II - Past Surgical History Musculoskeletal Surgical History: Reports: Other (See Below) 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 Social & Family History - Family History Family Medical History: Noncontributory Musculoskeletal: Reports: Osteoarthritis Endocrine/Metabolic: Reports: Diabetes, type II - Tobacco Use Smoking Status *Q: Former Smoker Used Tobacco, but Quit: Yes Month/Year Tobacco Last Used: 2009 - Caffeine Use Caffeine Use: Reports: Coffee - Alcohol Use Date of Last Drink: 02/11/18 - Recreational Drug Use Recreational Drug Use: No ED ROS GENERAL - Review of Systems Review Of Systems: See Below Constitutional: Reports: Weakness, Fatigue, Diaphoresis HEENT: Reports: No Symptoms Respiratory: Reports: No Symptoms Cardiovascular: Reports: No Symptoms Endocrine: Reports: Fatigue, Low Glucose GI/Abdominal: Reports: No Symptoms : Reports: No Symptoms Neurological: Reports: Confusion (admits when his blood sugar gets low. ) ED EXAM GENERAL NO PERIP PULSE - Physical Exam Exam: See Below Exam Limited By: No Limitations General Appearance: Alert, No Apparent Distress Ears: Normal External Exam, Hearing Grossly Normal Nose: Normal Inspection, No Blood Throat/Mouth: Normal Inspection, Normal Voice, No Airway Compromise Head: Atraumatic, Normocephalic Neck: Normal Inspection, Supple Respiratory/Chest: No Respiratory Distress, Lungs Clear, Normal Breath Sounds, No Accessory Muscle Use Cardiovascular: Regular Rate, Rhythm, No Edema, No Murmur GI/Abdominal: Normal Bowel Sounds, Soft, Non-Tender Extremities: Normal Inspection, No Pedal Edema, Normal Capillary Refill Neurological: Alert, Oriented, Normal Cognition, No Motor/Sensory Deficits Psychiatric: Normal Affect, Normal Mood Skin Exam: Warm, Dry, Intact, Normal Color, No Rash EKG INTERPRETATION EKG Date: 02/11/19 Rhythm: NSR Comparison: NA - No Prior EKG Course - Vital Signs Last Recorded V/S: Last Vital Signs Temp 97.4 F 02/11/19 01:22 Pulse 71 02/11/19 02:22 Resp 14 02/11/19 02:22 BP 151/91 H 02/11/19 02:22 Pulse Ox 100 02/11/19 02:22 - Orders/Labs/Meds Labs: Laboratory Tests 02/11/19 02/11/19 02/11/19 Range/Units 01:24 01:24 03:40 WBC 5.7 (5.0-10.0) 10^3/uL RBC 3.82 L (4.50-6.00) 10^6/uL Hgb 10.3 L (14.0-18.0) g/dL Hct 31.5 L (40.0-54.0) % MCV 82.5 (82.0-94.0) fL MCH 27.0 (27.0-32.0) pg MCHC 32.7 L (33.0-38.0) g/dL RDW Coeff of Jazzmine 16.5 H (11.0-15.0) % Plt Count 285 (150-400) 10^3/uL Neut % (Auto) 59.5 (35-85) % Lymph % (Auto) 23.9 (10-55) % Bartholomew % (Auto) 12.7 (0-16) % Eos % (Auto) 3.2 (0-5) % Baso % (Auto) 0.7 (0-3) % Neut # (Auto) 3.36 (1.80-7.00) 10^3/uL Lymph # (Auto) 1.35 (1.00-4.80) 10^3/uL Bar[place]olomew # (Auto) 0.72 (0.00-0.80) 10^3/uL Eos # (Auto) 0.18 (0.00-0.45) 10^3/uL Baso # (Auto) 0.04 10^3/uL Sodium 142 (136-145) mEq/L Potassium 4.9 (3.5-5.0) mEq/L Chloride 112 H (98-106) mEq/L Carbon Dioxide 20 L (21-32) mmol/L BUN 35 H (7-18) mg/dL Creatinine 1.6 H (0.7-1.3) mg/dL Est Cr Clr Drug Dosing TNP Estimated GFR (MDRD) 47 L (>=60) mL/min Glucose 61 L D (75-99) mg/dL POC Glucose 69 L (75-105) mg/dl Calcium 8.6 (8.4-10.1) mg/dL Total Bilirubin 0.1 (0.0-1.0) mg/dL AST 21 (15-37) U/L ALT 33 (12-78) U/L Alkaline Phosphatase 201 H (46-116) U/L Total Protein 7.6 (6.4-8.2) g/dL Albumin 3.5 (3.4-5.0) g/dL Amylase 75 (25-115) U/L Lipase 305 (73-393) U/L 02/11/19 02/11/19 02/11/19 Range/Units 04:31 05:02 06:24 WBC (5.0-10.0) 10^3/uL RBC (4.50-6.00) 10^6/uL Hgb (14.0-18.0) g/dL Hct (40.0-54.0) % MCV (82.0-94.0) fL MCH (27.0-32.0) pg MCHC (33.0-38.0) g/dL RDW Coeff of Jazzmine (11.0-15.0) % Plt Count (150-400) 10^3/uL Neut % (Auto) (35-85) % Lymph % (Auto) (10-55) % Bar[place]olomew % (Auto) (0-16) % Eos % (Auto) (0-5) % Baso % (Auto) (0-3) % Neut # (Auto) (1.80-7.00) 10^3/uL Lymph # (Auto) (1.00-4.80) 10^3/uL Bartholomew # (Auto) (0.00-0.80) 10^3/uL Eos # (Auto) (0.00-0.45) 10^3/uL Baso # (Auto) 10^3/uL Sodium (136-145) mEq/L Potassium (3.5-5.0) mEq/L Chloride (98-106) mEq/L Carbon Dioxide (21-32) mmol/L BUN (7-18) mg/dL Creatinine (0.7-1.3) mg/dL Est Cr Clr Drug Dosing Estimated GFR (MDRD) (>=60) mL/min Glucose (75-99) mg/dL POC Glucose 150 H 156 H 159 H (75-105) mg/dl Calcium (8.4-10.1) mg/dL Total Bilirubin (0.0-1.0) mg/dL AST (15-37) U/L ALT (12-78) U/L Alkaline Phosphatase (46-116) U/L Total Protein (6.4-8.2) g/dL Albumin (3.4-5.0) g/dL Amylase (25-115) U/L Lipase (73-393) U/L Meds: Medications Discontinued Medications Generic Name Dose Route Start Last Admin Trade Name Napoleon PRN Reason Stop Dose Admin Dextrose/Water Confirm 02/11/19 02:11 02/11/19 02:51 Dextrose 50% In Water Administered 02/11/19 02:12 Not Given Dose 50 ml .ROUTE .STK-MED ONE Dextrose/Water 25 ml 02/11/19 02:21 02/11/19 02:25 Dextrose 50% In Water IVPUSH 02/11/19 02:22 25 ml ONETIME ONE Administration Dextrose/Water 25 ml 02/11/19 03:43 02/11/19 03:47 Dextrose 50% In Water IVPUSH 02/11/19 03:44 25 ml ONETIME ONE Administration Lactated Ringer's Confirm 02/11/19 01:50 02/11/19 01:57 Ringers, Lactated Administered 02/11/19 01:51 150 mls/hr Dose Administration 1,000 mls @ as directed .ROUTE .STK-MED ONE - Re-Assessments/Exams Free Text/Narrative Re-Assessment/Exam: Normal saline was running upon arrival. Labs on arrival did show a blood glucose of 61. He was given orange juice and toast. He started to feel as if it was dropping again and recheck of blood sugar was 40. he was given 25g of D50. Blood sugar recheck did come up to 120's. Patient was transferred to the floor for extended ED for observation. Blood sugar did drop again to 69 and second dose of D50 (25g was given). We will continue to monitor blood sugar every 15 minutes if below 100. Will reevaluate in am. Departure - Departure Time of Disposition: 07:35 Disposition: Home, Self-Care 01 Clinical Impression: Hypoglycemia - Discharge Information Instructions: Hypoglycemia, [id number] Referrals: PCP,None [Primary Care Provider] - Forms: ED Department Discharge Additional Instructions: 1) Follow up with Dr. Crespo in 1 week for recheck 2) Discussed Novolog use, half-life, etc... with Sidney and his significant other 3) Always have source of sugar available 4) Last 3 blood sugar checks have been above 150. 5) Return to ED if any concerns. - Problem List & Annotations (1) Hypoglycemia SNOMED Code(s): 450581332 Code(s): E16.2 - HYPOGLYCEMIA, UNSPECIFIED Status: Acute Current Visit: Yes - Assessment/Plan Plan: Claudio's bedside glucose checks have been stable since 4 this morning. Last check was 194. Discussed monitoring with Sidney and his significant other. Will have him follow up with Dr. Crespo in the next week. Advised to return to ED sooner if any concerns.
[2019-02-11 08:17] VITALS: BP 132/84
== END 2019-02-11 08:15 | disposition home or self-care (01) ==
LOC: CC.ED 01:11
DX: E11.649 Type 2 diabetes mellitus with hypoglycemia without coma (principal); E11.40 Type 2 diabetes mellitus with diabetic neuropathy, unspecified; Z79.4 Long term (current) use of insulin; Z87.891 Personal history of nicotine dependence
CPT/HCPCS: 36415; 80053; 82150; 82962; 83690; 85025; 96361; 96374; 96376; 99283-25; J7060; J7120

== ENCOUNTER 2019-05-28 10:31 | Emergency (ER) | payer MEDICAID ==
[2019-05-28 11:14] LABS: CHLORIDE,CL 108 mEq/L (98-106); SODIUM,NA 141 mEq/L (136-145)
[2019-05-28] MEDS: Meclizine 12.5 MG Tab PO ONE (11:20)
--- NOTE | 2019-05-28 13:06 | EDM.PDOC ---
ED HPI GENERAL MEDICAL PROBLEM - General Chief Complaint: General Stated Complaint: DIZZY/SOB Time Seen by Provider: 05/28/19 10:45 Source of Information: Reports: Patient History Limitations: Reports: No Limitations - History of Present Illness INITIAL COMMENTS - FREE TEXT/NARRATIVE: Patient presents to ER with complaints of intermittent dizziness. He states he notes that the room spins when he gets up from sitting and/or with walking. He starts to feel short of breath at times. Dizziness doesn't always occur but does seem to be worse today. Has been having issues with this off an on for 3 years. relates he has had this "worked up before but unable to find a cause". His blood sugars have been stable for the most part as of late, running in the 120-160 range. He feels weak. No chest pain. No shortness of breath at rest. Does not get nauseated with the dizziness. Has not been syncopal. No recent fevers. No bowel changes. Onset: Gradual Duration: Minutes:, Getting Worse Location: Reports: Head Severity: Mild Improves with: Reports: Rest Worsens with: Reports: Movement Associated Symptoms: Reports: Weakness. Denies: Confusion, Chest Pain, Fever/ Chills, Headaches, Loss of Appetite, Nausea/Vomiting, Seizure, Shortness of Breath, Syncope head Pain Score (Numeric/FACES): 5 - Related Data Allergies Allergy/AdvReac Type Severity Reaction Status Date / Time No Known Allergies Allergy Verified 05/28/19 10:41 Home Meds: Home Meds Ferrous Sulfate 324 mg PO BIDMEALS #60 tab.ec 01/22/18 [Rx] Insulin Aspart [NovoLOG] 1 - 5 unit SUBCUT WITHMEALSANDBED PRN 12/09/18 [History ] Insulin Detemir [Levemir] 20 unit SUBCUT BEDTIME 02/11/19 [History] PARoxetine [Paxil] 10 mg PO DAILY 05/28/19 [History] Past Medical History HEENT History: Reports: Cataract, Glaucoma Respiratory History: Reports: SOB Gastrointestinal History: Reports: GI Bleed Genitourinary History: Reports: Renal Disease Neurological History: Reports: Neuropathy, Diabetic Psychiatric History: Reports: Depression Endocrine/Metabolic History: Reports: Diabetes, Type II - Past Surgical History Musculoskeletal Surgical History: Reports: Other (See Below) 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 Denies: Fever, Chills, Decreased Appetite HEENT: Reports: Vertigo. Denies: Ear Discharge, Sinus Problem, Throat Pain Respiratory: Denies: Shortness of Breath, Cough Cardiovascular: Denies: Chest Pain, Edema, Lightheadedness Endocrine: Reports: Fatigue GI/Abdominal: Denies: Abdominal Pain, Hematochezia, Melena, Nausea, Vomiting : Reports: No Symptoms Musculoskeletal: Reports: No Symptoms Skin: Reports: No Symptoms Neurological: Reports: Dizziness, Weakness. Denies: Headache, Syncope ED EXAM, GENERAL - Physical Exam Exam: See Below Exam Limited By: No Limitations General Appearance: Alert, WD/WN, No Apparent Distress Eye Exam: Bilateral Eye: EOMI, PERRL Ears: Normal External Exam, Normal TMs Nose: Normal Inspection, Normal Mucosa, No Blood Throat/Mouth: Normal Inspection, Normal Oropharynx Head: Normocephalic Neck: Normal Inspection, Supple, Non-Tender Respiratory/Chest: No Respiratory Distress, Lungs Clear, Normal Breath Sounds Cardiovascular: Regular Rate, Rhythm GI/Abdominal: Normal Bowel Sounds, Soft, Non-Tender Extremities: Normal Inspection, No Pedal Edema Neurological: Alert, Oriented, CN II-XII Intact, Normal Reflexes, No Motor/ Sensory Deficits, Other (Unable to reproduce dizziness with quick head movements nor with ambulation during exam. When up to the bathroom, did report room spinning.) Course - Vital Signs Last Recorded V/S: Last Vital Signs Temp 96.9 F 05/28/19 10:39 Pulse 81 05/28/19 10:39 Resp 14 05/28/19 10:39 BP 129/64 05/28/19 10:39 Pulse Ox 98 05/28/19 10:39 - Orders/Labs/Meds Orders: Active Orders 24 hr Category Date Time Status Consult to Physical Therapy [PT Evaluation and Cons 05/28/19 13:06 Active Treatment] [CONS] Routine Labs: Laboratory Tests 05/28/19 05/28/19 05/28/19 Range/Units 10:57 10:57 10:57 WBC 6.7 (5.0-10.0) 10^3/uL RBC 3.76 L (4.50-6.00) 10^6/uL Hgb 10.4 L (14.0-18.0) g/dL Hct 33.1 L (40.0-54.0) % MCV 88.0 (82.0-94.0) fL MCH 27.7 (27.0-32.0) pg MCHC 31.4 L (33.0-38.0) g/dL RDW Coeff of Jazzmine 14.1 (11.0-15.0) % Plt Count 285 (150-400) 10^3/uL Neut % (Auto) 66.1 (35-85) % Lymph % (Auto) 22.3 (10-55) % [place] % (Auto) 8.5 (0-16) % Eos % (Auto) 2.7 (0-5) % Baso % (Auto) 0.4 (0-3) % Neut # (Auto) 4.41 (1.80-7.00) 10^3/uL Lymph # (Auto) 1.49 (1.00-4.80) 10^3/uL [place] # (Auto) 0.57 (0.00-0.80) 10^3/uL Eos # (Auto) 0.18 (0.00-0.45) 10^3/uL Baso # (Auto) 0.03 10^3/uL D-Dimer, Quantitative 0.20 (0.00-0.50) Sodium 141 (136-145) mEq/L Potassium 4.6 (3.5-5.0) mEq/L Chloride 108 H (98-106) mEq/L Carbon Dioxide 22 (21-32) mmol/L BUN 47 H (7-18) mg/dL Creatinine 1.7 H (0.7-1.3) mg/dL Est Cr Clr Drug Dosing 56.06 mL/min Estimated GFR (MDRD) 44 L (>=60) mL/min Glucose 116 H D (75-99) mg/dL Calcium 8.4 (8.4-10.1) mg/dL Magnesium 2.1 (1.8-2.4) mg/dL Troponin I < 0.017 (0.00-0.06) ng/mL C-Reactive Protein < 0.2 L (0.2-0.8) mg/dL Urine Color (YELLOW) Urine Appearance (CLEAR) Urine pH (4.5-8.0) Ur Specific [place] (1.003-1.020) Urine Protein (NEGATIVE) mg/dL Urine Glucose (UA) (NEGATIVE) mg/dL Urine Ketones (NEGATIVE) mg/dL Urine Occult Blood (NEGATIVE) Urine Nitrite (NEGATIVE) Urine Bilirubin (NEGATIVE) Urine Urobilinogen (0.2-1.0) EU/dL Ur Leukocyte Esterase (NEGATIVE) Urine RBC (0-5) /HPF Urine WBC (0-5) /HPF Ur Squamous Epith Cells (NOT SEEN) /HPF Calcium Oxalate Crystal (NOT SEEN) /HPF Urine Bacteria (NOT SEEN) /HPF Urine Mucus (NOT SEEN) /HPF 05/28/19 Range/Units 11:40 WBC (5.0-10.0) 10^3/uL RBC (4.50-6.00) 10^6/uL Hgb (14.0-18.0) g/dL Hct (40.0-54.0) % MCV (82.0-94.0) fL MCH (27.0-32.0) pg MCHC (33.0-38.0) g/dL RDW Coeff of Jazzmine (11.0-15.0) % Plt Count (150-400) 10^3/uL Neut % (Auto) (35-85) % Lymph % (Auto) (10-55) % [place] % (Auto) (0-16) % Eos % (Auto) (0-5) % Baso % (Auto) (0-3) % Neut # (Auto) (1.80-7.00) 10^3/uL Lymph # (Auto) (1.00-4.80) 10^3/uL [place] # (Auto) (0.00-0.80) 10^3/uL Eos # (Auto) (0.00-0.45) 10^3/uL Baso # (Auto) 10^3/uL D-Dimer, Quantitative (0.00-0.50) Sodium (136-145) mEq/L Potassium (3.5-5.0) mEq/L Chloride (98-106) mEq/L Carbon Dioxide (21-32) mmol/L BUN (7-18) mg/dL Creatinine (0.7-1.3) mg/dL Est Cr Clr Drug Dosing mL/min Estimated GFR (MDRD) (>=60) mL/min Glucose (75-99) mg/dL Calcium (8.4-10.1) mg/dL Magnesium (1.8-2.4) mg/dL Troponin I (0.00-0.06) ng/mL C-Reactive Protein (0.2-0.8) mg/dL Urine Color Yellow (YELLOW) Urine Appearance Clear (CLEAR) Urine pH 5.5 (4.5-8.0) Ur Specific [place] 1.020 (1.003-1.020) Urine Protein 30 H (NEGATIVE) mg/dL Urine Glucose (UA) Negative (NEGATIVE) mg/dL Urine Ketones Negative (NEGATIVE) mg/dL Urine Occult Blood Negative (NEGATIVE) Urine Nitrite Negative (NEGATIVE) Urine Bilirubin Negative (NEGATIVE) Urine Urobilinogen 0.2 (0.2-1.0) EU/dL Ur Leukocyte Esterase Negative (NEGATIVE) Urine RBC Not seen (0-5) /HPF Urine WBC 0-5 (0-5) /HPF Ur Squamous Epith Cells Occasional H (NOT SEEN) /HPF Calcium Oxalate Crystal Occasional H (NOT SEEN) /HPF Urine Bacteria Occasional H (NOT SEEN) /HPF Urine Mucus Few H (NOT SEEN) /HPF Meds: Medications Discontinued Medications Generic Name Dose Route Start Last Admin Trade Name Freq PRN Reason Stop Dose Admin Meclizine HCl 25 mg 05/28/19 11:14 05/28/19 11:20 Antivert PO 05/28/19 11:15 25 mg ONETIME ONE Administration - Re-Assessments/Exams Free Text/Narrative Re-Assessment/Exam: 05/28/19 1200 Labs all essentially normal. Observing patient, given dinner, no further episodes of dizziness. Was given meclizine this am 1400-Did have PT evaluate patient, also unable to reproduce any dizziness. Did note orthostatic hypotension. Patient feeling good after resting. Will discharge home. Did discuss orthostatic changes. Needs to push fluids. Take slow cautious movements. Discussed with DR. Crespo, no other med changes made. Will have patient return back next week for recheck. Departure - Departure Time of Disposition: 14:14 Disposition: Home, Self-Care 01 Condition: Fair Clinical Impression: Orthostatic hypotension - Discharge Information *PRESCRIPTION DRUG MONITORING PROGRAM REVIEWED*: No *COPY OF PRESCRIPTION DRUG MONITORING REPORT IN PATIENT ELVIA: No Instructions: Orthostatic Hypotension Forms: ED Department Discharge Additional Instructions: 1. Push fluids 2. rest 3. Slow, cautious movements 4. Follow up with Dr. Crespo if increased concerns or changes Sepsis Event Note - Evaluation Sepsis Screening Result: No Definite Risk - Focused Exam Vital Signs: Vital Signs Temp Pulse Resp BP Pulse Ox 05/28/19 10:39 96.9 F 81 14 129/64 98 Date Exam was Performed: 05/28/19 Time Exam was Performed: 21:25 - My Orders Last 24 Hours: My Active Orders 05/28/19 13:06 Consult to Physical Therapy [PT Evaluation and Treatment] [CONS] Routine - Assessment/Plan Last 24 Hours: My Active Orders 05/28/19 13:06 Consult to Physical Therapy [PT Evaluation and Treatment] [CONS] Routine
== END 2019-05-28 14:23 | disposition home or self-care (01) ==
LOC: CC.ED 10:31
DX: I95.1 Orthostatic hypotension (principal); E11.9 Type 2 diabetes mellitus without complications; Z79.4 Long term (current) use of insulin
CPT/HCPCS: 36415; 80048; 81001; 83735; 84484; 85025; 85379; 86140; 93005; 99285-25; A9270-GY